=== PATIENT | female | born 1970 | race Caucasian/White ===

== ENCOUNTER 2021-05-18 10:25 | Emergency (ER) | payer BC, SELFPAY ==
[2021-05-18] VITALS (7 sets, daily range): BP systolic 126–151; BP diastolic 76–94; PULSE 69–87; RESP 15–18; TEMP 36.5–37; O2SAT 94–97; BMI 25.8
[2021-05-18 11:35] LABS: Add Urine Microscopic? YES; Bilirubin Urine Neg (Negative); Blood Urine 3+ (Negative); Glucose Urine UA Norm (Normal); Ketones Urine Negative (Negative); Leukocyte Esterase Urine 1+ (Negative); Nitrate Urine Negative (Negative); Protein Urine Neg (Negative); Specific Gravity, Urine 1.015 (1.005-1.030); Urine Appearance Clear (CLEAR); Urine Color Yellow (Yellow); Urobilinogen Urine Norm (Negative); pH Urine 6 (5-7)
--- NOTE | 2021-05-18 11:47 | CT_ITS ---
WS: [id number] CT ABDOMEN AND PELVIS WITH CONTRAST HISTORY: Right-sided flank pain TECHNIQUE: Imaging performed of the abdomen and pelvis with IV contrast. Single phase imaging of the abdomen. Coronal and sagittal reformats are submitted. All CT scans at [facility] use at least one of these dose optimization techniques: automated exposure control; mA and/or kV adjustment per patient size (includes targeted exams where dose is matched to clinical indication); or iterativ e reconstruction. IV CONTRAST: Omnipaque 300; 95 mL IV. Oral contrast: No DLP: 1591.07 mGy.cm COMPARISON: None available. Lower thorax: Lung bases are clear. Heart is normal size. No hiatal hernia. Liver/biliary system: Multiple small low-attenuation lesions within the liver are likely cysts. Fatty sparing along the falciform ligament. No bile duct dilatation. Gallbladder: Status post cholecystectomy. Pancreas: Normal size pancreas and pancreatic duct. No adjacent inflammation. Spleen: Normal size spleen. No mass or infarct. Adrenal glands: Bilateral low-attenuation adrenal masses. Hounsfield units are elevated. RIGHT adrena l mass measures 2.7 cm in maximum diameter and the LEFT 3.3 cm. Right kidney: Large amount of perinephric stranding. Moderate hydroureteronephrosis. Ureter is dilate d into the pelvis secondary to a 6 mm calcification in the distal ureter. This calcification extends over length of 7 mm and is slightly lobulated. This could be due two adjacent calcifications. Marked enlargement of the ureter with periureteral stranding. There are additional nonobstructing calcificat ions in the renal pelvis. RIGHT renal cyst measures 4.5 cm from the mid kidney. Left kidney: Numerous calyceal calcifications. No significant hydronephrosis. There is very slight di latation of the renal pelvis and ureter. Aorta: Normal. Lymphadenopathy: Small retroperitoneal lymph nodes. Lymph nodes are numerous and mildly hypervascular and may be a response of the RIGHT renal obstruction and possible pyelonephritis. Free fluid: Perinephric stranding and fluid along the RIGHT paracolic gutter. GI tract: The appendix is normal and contains air. There is a small appendicolith present. Central sm all bowel loops are dilated up to 3.7 cm Abdominal wall: Unremarkable abdominal wall. No hernia. Pelvis: No free fluid or adenopathy within the pelvis. Bones: Moderate degenerative disc disease at L5-S1. CT/CT abdomen pelvis w con* [id number] IMPRESSION: 1. Moderate to severe RIGHT hydroureteronephrosis with a large amount of perin ephric and periureteral stranding. Superimposed pyelonephritis should be consid ered taking into consideration the extent of the stranding. 2. RIGHT hydronephrosis secondary to a lobulated distal ureteral calcification extending over a length of 7 mm and transversely by 6 mm. This could potential ly be two adjacent calcifications. 3. Normal appendix but there is an appendicolith present. 4. Numerous additional calcifications within each kidney, greatest in the LEFT kidney probably due to medullary sponge kidney. 5. Prior cholecystectomy. 6. Bilateral low-attenuation adrenal masses. With no history of malignancy the se are statistically probably adenomas. To confirm this recommend follow-up ded icated adrenal mass protocol CT or MRI with contrast.
[2021-05-18 11:49] LABS: RBC Urine 50-80 /hpf (0-2); WBC Urine 0-4 /hpf (0-5)
[2021-05-18 11:50] LABS: Squamous Epithelial Cell Urine RARE /hpf (0-5)
[2021-05-18] MEDS: ondansetron 2 mg/ML SDV 2 mL 4 MG IVP (12:02)
[2021-05-18] MEDS: sodium chloride 0.9% 1,000 ML 999 ML IV (12:02)
[2021-05-18] MEDS: morphine 4 mg/mL SDV 1 mL IVP ×2 (12:03→13:42)
[2021-05-18 12:10] LABS: Basophils # 0.1 10^3/uL (0.0-0.1); Basophils % 0.4 %; Eosinophils # 0.1 10^3/uL (0.0-0.8); Eosinophils % 0.4 %; Hemoglobin 15.5 g/dL (11.5-15.3); Lymphocytes # 2.8 10^3/uL (0.8-4.8); Lymphocytes % 16.2 %; Mean Corpuscular Hemoglobin 30.5 pg (28.0-34.0); Mean Corpuscular Volume 92.5 fL (81-99); Mean Platelet Volume 10.7 fL (7.4-10.4); Monocytes # 1.3 10^3/uL (0.2-0.9); Monocytes % 7.7 %; Neutrophils # 12.92 10^3/uL (1.8-7.7); Nucleated Red Blood Cells % 0 %; Platelet Count 296 10^3/cmm (130-400); Red Blood Count 5.08 10^6/uL (4.1-5.3); Red Cell Distribution Width 12.9 % (12.1-15.1); White Blood Count 17.2 10^3/uL (4.0-10.0)
--- NOTE | 2021-05-18 12:17 | W.ED.ABDPA2 ---
HPI - Abdominal Pain General: Chief Complaint: Abdominal Pain Stated Complaint: flank and ab pain, N/V Time Seen by Provider: 05/18/21 11:33 History of Present Illness: HPI narrative: 51-year-old female presents emergency room complaint of right-sided flank pain radiating into the lower abdomen. Pain began suddenly last night with nausea and vomiting. She has no dysuria no hematuria she has a history of renal stones. She not had any fever sweats or chills. She has had some diarrhea with this. She has had previous episodes that were much less intense. MD elicited complaint: abdominal pain Pertinent past history: kidney stones Onset (ago): minute(s) Pain Consistency: intermittent Location: R flank Severity: moderate Quality: cramping Radiation: RUQ, epigastric and suprapubic Exacerbating factors: nothing Relieving factors: nothing Associated Symptoms: Reports GI cramping and diarrhea; Denies anorexia, belching, bloating, change in bowel habits, change in stool character, chills, coffee ground emesis, constipation, dyspepsia, dysuria, excessive flatus, fever(s), heartburn, hematochezia, hematuria, hematemesis, fecal incontinence, loose stools, melena, nausea, poor appetite, syncope and vomiting Review of Systems Const: Denies: fever(s) or chills ENMT: Denies: throat pain, ear or mastoid pain, nasal discharge or nasal congestion Card: Denies: syncope Resp: Denies: dyspnea, productive cough or non-productive cough GI: Reports: diarrhea and GI cramping; Denies: nausea, vomiting, hematemesis, coffee ground emesis, heartburn, constipation, bloating, belching, excessive flatus, fecal incontinence, change in bowel habits, change in stool character, hematochezia or melena : Denies: dysuria or hematuria Skin/Breast: Denies: rash or pruritus PFSH ED PFSH: Medical History (Updated 05/26/21 @ 00:00 by ) Hydronephrosis Right distal ureteral calculus S/P extracorporeal shock wave therapy Surgical History (Updated 05/19/21 @ 08:37 by Dejuan Gabriel MD) Hx of cholecystectomy S/P ureteral stent placement Family History (Updated 05/19/21 @ 07:52 by Gabrielle Arias LPN) Father Lung disease emphysema Mother , at age 62 Cancer Diabetes Social History (Updated 05/19/21 @ 07:53 by Gabrielle Arias LPN) Smoking and tobacco status: current every day smoker cigarettes Packs smoked per day: 0.5 Alcohol intake: current Alcohol intake frequency: holidays/special occasions only Marital status: Current occupational status: unemployed History of recent travel: No Physical Exam Const: COMMON NORMALS: no acute distress GENERAL APPEARANCE: cooperative and comfortable ORIENTATION/CONSCIOUSNESS: Yes awake, Yes oriented to person, Yes oriented to place and Yes oriented to time HENMT: COMMON NORMALS: normocephalic, atraumatic, hearing grossly normal bilaterally and external ears normal HEAD & SCALP: normocephalic and atraumatic EXTERNAL EAR: Yes external ears normal Neck/C-Spine: COMMON NORMALS: no JVD Resp: COMMON NORMALS: normal respiratory effort, No retractions, No use of accessory muscles and clear to auscultation bilaterally AUSCULTATION: clear to auscultation bilaterally Cardio: COMMON NORMALS: no JVD, regular rate, regular rhythm and No murmurs present (Cardio) RATE: regular rate RHYTHM: regular rhythm GI: COMMON NORMALS: Soft to palpation and No hepatosplenomegaly present AUSCULTATION: Yes normoactive bowel sounds PALPATION: Yes Soft to palpation, No Tenderness to palpation present (GI), No Guarding due to palpation present (GI) and Yes No hepatosplenomegaly present Extremity: COMMON NORMALS: normal to inspection, capillary refill normal, no clubbing, cyanosis or edema, no calf tenderness and no pedal edema Neuro: SENSORIUM/ORIENTATION: Yes oriented to person, Yes oriented to place and Yes oriented to time Skin: COMMON NORMALS: no rashes or lesions noted GENERAL SKIN EXAM: no rashes or lesions noted Course Vital Signs: Vital signs: Vital Signs Temperature 98.2 F 05/18/21 14:34 Pulse Rate 73 05/18/21 14:34 Respiratory Rate 18 05/18/21 14:34 Blood Pressure 126/87 05/18/21 14:34 Pulse Oximetry 94 05/18/21 14:34 MDM - Abdominal Pain MDM Narrative: Medical decision making narrative: Renal calculi. Discussed with patient will have her strain urine medications given follow-up with Dr. Gabriel to be scheduled in the morning. If he has any worsening problems her pain is uncontrollable return. Lab Data: Labs: Lab Results 05/18/21 05/18/21 05/18/21 Range/Units 11:10 11:53 11:53 WBC 17.2 H (4.0-10.0) 10^3/ uL RBC 5.08 (4.1-5.3) 10^6/u L Hgb 15.5 H (11.5-15.3) g/dL Hct 47.0 (37.0-47.0) % MCV 92.5 (81-99) fL MCH 30.5 (28.0-34.0) pg MCHC 33.0 (30.0-36.0) g/dL RDW 12.9 (12.1-15.1) % Plt Count 296 (130-400) 10^3/c mm MPV 10.7 H (7.4-10.4) fL Neut % (Auto) 75.0 % Lymph % (Auto) 16.2 % Knott % (Auto) 7.7 % Eos % (Auto) 0.4 % Baso % (Auto) 0.4 % Neut # (Auto) 12.92 H (1.8-7.7) 10^3/u L Lymph # (Auto) 2.8 (0.8-4.8) 10^3/u L Knott # (Auto) 1.3 H (0.2-0.9) 10^3/u L Eos # (Auto) 0.1 (0.0-0.8) 10^3/u L Baso # (Auto) 0.1 (0.0-0.1) 10^3/u L Nucleated RBC % (a uto) 0 % Nucleated RBCs # 0.0 /100WBC Sodium 134 L (136-145) mmol/L Potassium 4.3 (3.5-5.1) mmol/L Chloride 99 (98-107) mmol/L Carbon Dioxide 24 (22-29) mmol/L Anion Gap 15.3 (5-19) BUN 18 (6-20) mg/dL Creatinine 0.7 (0.5-0.9) mg/dL GFR Calculation 88.6 L (90-130) mL/min Glucose 112 (65-115) mg/dL Calculated Osmolal ity 281 L (285-295) mOsm/k g Calcium 9.0 (8.5-10.5) mg/dL Total Bilirubin 0.5 (0.15-1.2) mg/dL AST 18 (0-32) U/L ALT 18 (0-33) U/L Alkaline Phosphata se 120 H (35-105) IU/L Total Protein 6.9 (6.6-8.7) g/dL Albumin 4.2 (3.5-5.2) g/dL Globulin 2.7 (1.3-4.6) g/dL Lipase 13 (13-60) U/L Urine Color Yellow (Yellow) Urine Appearance Clear (CLEAR) Urine pH 6 (5-7) Ur Specific Gravit y 1.015 (1.005-1.030) Urine Protein Neg (Negative) Urine Glucose (UA) Norm (Normal) Urine Ketones Negative (Negative) Urine Blood 3+ H (Negative) Urine Nitrate Negative (Negative) Urine Bilirubin Neg (Negative) Urine Urobilinogen Norm (Negative) mg/dL Ur Leukocyte Yamileth ase 1+ H (Negative) Urine RBC 50-80 H (0-2) /hpf Urine WBC 0-4 H (0-5) /hpf Ur Squamous Epith Cells Rare (0-5) /hpf Amorphous Sediment Not Reportable Urine Bacteria None (NONE) /hpf Discharge Plan Discharge Patient Disposition: Home Clinical Impression: Calculus of kidney Condition: Stable Prescriptions: New hydrocodone-acetaminophen 5-325 mg tablet 1 tab PO Q6H PRN (Reason: pain) Qty: 25 RF: 0 ondansetron HCl [Zofran] 4 mg tablet 4 mg PO Q6H PRN (Reason: nausea and vomiting) Qty: 20 RF: 0 tamsulosin 0.4 mg capsule 0.4 mg PO DAILY Qty: 20 RF: 0 Discharge Orders: Discharge ED (Routine); Ordered 05/18/21 Ordered By: Joshua Morrison Discharge Diet: Usual diet Patient Instructions: Opioid Safety Activity Restrictions/Additional Instructions: Case management will contact you for follow-up with urology tomorrow morning. Coding Level of Care Code ED Beverage Steward for [facility] Fwd Exam Comprehensive
[2021-05-18] MEDS: iohexol 300 mg/mL 100 mL Btl IV (12:24)
[2021-05-18 12:26] LABS: Alanine Aminotransferase 18 U/L (0-33); Albumin Level 4.2 g/dL (3.5-5.2); Alkaline Phosphatase 120 IU/L (35-105); Anion Gap 15.3 (5-19); Aspartate Amino Transferase 18 U/L (0-32); Blood Urea Nitrogen 18 mg/dL (6-20); Carbon Dioxide 24 mmol/L (22-29); Chloride 99 mmol/L (98-107); Globulin 2.7 g/dL (1.3-4.6); Glomerular Filtration Rate 88.6 mL/min (90-130); Glucose 112 mg/dL (65-115); Lipase 13 U/L (13-60); Osmolality Calculated 281 mOsm/kg (285-295); Potassium 4.3 mmol/L (3.5-5.1); Sodium 134 mmol/L (136-145); Total Bilirubin 0.5 mg/dL (0.15-1.2); Total Protein 6.9 g/dL (6.6-8.7)
--- NOTE | 2021-05-18 12:54 | PC.NURSE ---
Patient Reports flank pain that radiates to abdomen. Reports history of kidney stones but has never had pain this severe. Rates pain as a 10 and describes as shooting.
[2021-05-18] MEDS: cefTRIAXone 2,000 MG in sodium chloride 0.9% (plus) 50 ML 100 MG IV (13:43)
--- NOTE | 2021-05-18 13:49 | DCPLANNER ---
Received message to schedule patient with urology in the AM. Called Dr. Gabriel's office and spoke to Joycelyn, who states they have patient scheduled tomorrow @ 0730. Patient has been notified of this appointment.
--- NOTE | 2021-05-25 07:20 | DCPLANNER ---
Patient had a follow up appointment scheduled for 05.19.[address] Gabriel - patient did attend appointment.
--- NOTE | 2021-05-26 07:19 | DCPLANNER ---
Patient had a follow up appointment scheduled for 05.19.[address] Gabriel - patient did attend appointment.
--- NOTE | 2021-06-02 15:29 | DCPLANNER ---
Patient had a followup appointment scheduled for 05.19.[address] Gabriel - patient did attend appointment.
== END 2021-05-18 14:34 | disposition home or self-care (01) ==
PROVIDERS: Physician Assistant; Emergency Provider Family Medicine
DX: N20.0 Calculus of kidney (principal); Z87.442 Personal history of urinary calculi; F17.210 Nicotine dependence, cigarettes, uncomplicated
CPT/HCPCS: 74177; 80053; 81001; 83690; 85025; 96361; 96365; 96375; 96376; 99285; J0696; J2270; J2405; J7030; Q9967

== ENCOUNTER 2021-05-19 07:12 | Outpatient (CLI) | payer BC, SELFPAY ==
--- NOTE | 2021-05-19 07:00 | XR_ITS ---
WS: [id number] KUB, AP view, 05/19/2021 Clinical Data: ureteral calculus Comparison: CT abdomen and pelvis, 05/18/2021 Findings: No abnormal intraabdominal masses are seen. There is no dilatated small bowel or evidence of obstruct ion. There are calcifications overlying both kidneys, more on the left than the right. The distal right ur eteral calculus is not distinctly seen but may be present. There are phleboliths in the left side of the true pelvis. There is a large amount of fecal material throughout the colon. There are clips in t he right upper quadrant from a cholecystectomy. XR/XR KUB [id number] Impression: 1. Bilateral renal calcifications. 2. Possible distal right ureteral calculus.
== END 2021-05-19 07:13 | disposition home or self-care (01) ==
LOC: RAD 07:15
PROVIDERS: Visit Provider Urology
DX: N20.0 Calculus of kidney (principal); N20.1 Calculus of ureter; Z20.822 Contact with and (suspected) exposure to COVID-19
CPT/HCPCS: 74018; 81003; 87635

== ENCOUNTER 2022-01-17 07:01 | Outpatient (CLI) | payer BC, SELFPAY ==
--- NOTE | 2022-01-17 07:00 | XRR_ITS ---
PROCEDURE INFORMATION: Exam: XR Abdomen Exam date and time: 01/17/2022 7:00 AM Age: 51 years old Clinical indication: Condition or disease; Kidney or ureter condition; Calculus (stone) in ureter; Prior surgery; Surgery type: Kidney stone, gb; Additional info: Right distal ureteral calculus, kub @ ozh on 01/17/22 @ 7. Appt to follow TECHNIQUE: Imaging protocol: XR of the abdomen. Views: Frontal supine view of the abdomen. 1 View. COMPARISON: CR XR KUB [id number] 05/19/2021 7:[address] dated 05/18/2021. FINDINGS: Gastrointestinal tract: Nonobstructive bowel gas pattern. Intraperitoneal space: There is a 0.9 cm calcific density at the expected location of the right distal ureter, which may correspond to obstructing stone seen on previous abdomen CT. Calcific densities are again seen projecting over the kidney shadows, corresponding to known nonobstructive kidney stones. Some of the previously seen kidney stones are obscured by overlying bowel content. Cholecystectomy clips project over the right upper quadrant. Pelvic phleboliths seen. Bones/joints: Unremarkable. XR/XR KUB [id number] IMPRESSION: 1. Calcific density at the expected location of the right distal ureter, which may correspond to previously identified obstructing kidney stones. 2. Bilateral nonobstructive kidney stones.
--- NOTE | 2022-01-17 10:14 | CT_ITS ---
WS: [id number] CT ABDOMEN AND PELVIS NONCONTRAST HISTORY: Bilateral flank pain for 3 weeks. TECHNIQUE: Imaging performed through the abdomen and pelvis. Coronal and sagittal reformats are submi tted. All CT scans at [facility] use at least one of these dose optimization techniques: auto mated exposure control; mA and/or kV adjustment per patient size (includes targeted exams where dose is matched to clinical indication); or iterative reconstruction. DLP: 1095.77 mGy-cm. COMPARISON: 05/18/2021 Lower thorax: Lung bases are clear. Visualized heart is normal. No hiatal hernia. Liver: Normal size liver. 12 mm cyst in the inferior posterior RIGHT lobe of the liver. There is an a dditional smaller 5 mm cyst at the most inferior tip of the liver. Gallbladder: Prior cholecystectomy. Pancreas: Normal size and attenuation. Normal pancreatic duct. No pancreatitis or mass. Spleen: Normal. Adrenal glands: Bilateral low-attenuation adrenal masses. RIGHT adrenal mass measures 2.3 x 2.0 cm. L EFT adrenal mass is lobulated measuring 2.8 x 4.2 cm. Hounsfield units are negative and these masses are stable since 05/18/2022. Right kidney: Previously described hydronephrosis has resolved. There is a 7 x 5 mm stone in the dist al RIGHT ureter which was present on the prior examination also. This may be a new calcification of s imilar dimension. There are additional numerous calcifications within the renal pelvis. No change in the RIGHT renal cyst measuring 3.7 x 4.8 cm. Left kidney: Normal size kidney with extensive calcifications within the calyces of the kidney. No ur eteral calcification or obstruction identified. Aorta: Mild atherosclerosis aorta. There are small shoddy retroperitoneal and mesenteric lymph nodes. Not increasing in size. GI tract: Appendix is visualized and appears normal. No adjacent inflammation. Extensive diverticulos is throughout the colon. Abdominal wall: Negative. No hernia. Pelvis: No free fluid or adenopathy within the pelvis. Uterus and ovaries are normal by CT. Osseous structures: Unremarkable. CT/CT kidney stone [id number] IMPRESSION: 1. Extensive bilateral nephrolithiasis. 2. Previously described RIGHT hydronephrosis has resolved but there is a stone in the distal RIGHT ureter measuring 7 x 5 mm. 3. Bilateral adrenal adenomas. 4. Extensive diverticulosis without acute diverticulitis.
== END 2022-01-17 07:02 | disposition home or self-care (01) ==
PROVIDERS: PCP Nurse Practitioner; Visit Provider Urology
DX: R10.9 Unspecified abdominal pain (principal); N20.1 Calculus of ureter; N20.0 Calculus of kidney; D35.02 Benign neoplasm of left adrenal gland; D35.01 Benign neoplasm of right adrenal gland; K57.90 Diverticulosis of intestine, part unspecified, without perforation or abscess without bleeding
CPT/HCPCS: 74018; 74176; 81003

== ENCOUNTER 2022-01-21 11:34 | Outpatient (CLI) | payer BC, SELFPAY ==
--- NOTE | 2022-01-21 11:00 | XR_ITS ---
WS: [id number] KUB, AP view, 01/21/2022 Clinical Data: STONES Comparison: KUB, 01/17/2022 Findings: No abnormal intraabdominal masses are seen. There is no dilatated small bowel or evidence of obstruct ion. There are numerous calcifications overlying the left kidney. Calcifications may overlie the right kid elida but the overlying fecal material and gas obscure detail. There is a 0.9 cm calcification inferior to the right SI joint which may represent a distal right ureteral calculus. There are phleboliths in the true pelvis. XR/XR KUB [id number] Impression: 1. Bilateral renal calculi unchanged. 2. Possible distal right ureteral calculus unchanged.
== END 2022-01-21 11:35 | disposition home or self-care (01) ==
LOC: RAD 11:45
PROVIDERS: PCP Nurse Practitioner; Visit Provider Urology
DX: N20.0 Calculus of kidney (principal)
CPT/HCPCS: 74018; 81003

== ENCOUNTER 2022-02-08 07:07 | Outpatient (CLI) | payer BC, SELFPAY ==
--- NOTE | 2022-02-08 07:22 | XR_ITS ---
WS: [id number] KUB, AP view, 02/08/2022 Clinical Data: BILATERAL RENAL STONES Comparison: KUB, 01/21/2022. Findings: No abnormal intraabdominal masses are seen. There is no dilatated small bowel or evidence of obstruct ion. There are bilateral renal calcifications, more on the left than the right. Again there is a calcifica tion inferior to the right SI joint which may represent a phlebolith or a distal right ureteral calcu fiorella. There are phleboliths in the true pelvis. There are clips in the right upper quadrant from a cho lecystectomy. XR/XR KUB [id number] Impression: 1. Bilateral renal calcifications. 2. Possible distal right ureteral calculus unchanged.
== END 2022-02-08 07:08 | disposition home or self-care (01) ==
PROVIDERS: PCP Nurse Practitioner; Visit Provider Urology
DX: N20.0 Calculus of kidney (principal); N30.00 Acute cystitis without hematuria
CPT/HCPCS: 74018; 81003

== ENCOUNTER 2022-02-22 10:01 | Outpatient (CLI) | payer BC, SELFPAY ==
--- NOTE | 2022-02-22 10:14 | XR_ITS ---
WS: [id number] XR KUB [id number] REASON FOR EXAM: Bilateral Renal Stones FINDINGS: Several sub-2 mm calculi seen overlying the right kidney. Multiple clusters of calculi overlying the left kidney with the largest calculus measuring 8.8 mm in maximum diameter. No significant interval c hange compared to 02/08/2022. No ureteral calculi. No bladder calculi. XR/XR KUB [id number] IMPRESSION: Multiple renal calculi as above.
== END 2022-02-22 10:02 | disposition home or self-care (01) ==
PROVIDERS: PCP Nurse Practitioner; Visit Provider Urology
DX: N20.0 Calculus of kidney (principal); N13.30 Unspecified hydronephrosis
CPT/HCPCS: 74018; 81003

== ENCOUNTER 2022-07-11 17:22 | Emergency (ER) | payer BC, MEDICAID, SELFPAY ==
[2022-07-11 17:31] VITALS: BP 123/65; PULSE 118; RESP 16; TEMP 37.9; O2SAT 94; BMI 28.1
--- NOTE | 2022-07-11 18:27 | CTR_ITS ---
PROCEDURE INFORMATION: Exam: CT Abdomen And Pelvis Without Contrast Exam date and time: 07/11/2022 6:33 PM Age: 52 years old Clinical indication: Pain; Other: Flank right; Prior surgery; Surgery date: 6+ months; Surgery type: Taryn, S/P ureteral stent in the past; Additional info: Flank pain TECHNIQUE: Imaging protocol: Computed tomography of the abdomen and pelvis without contrast. Radiation optimization: All CT scans at this facility use at least one of these dose optimization techniques: automated exposure control; mA and/or kV adjustment per patient size (includes targeted exams where dose is matched to clinical indication); or iterative reconstruction. COMPARISON: CT abdomen pelvis w con* [id number] 05/18/2021 12:18 PM RADIATION DOSE METRICS: Total DLP (mGy-cm): 696 FINDINGS: Liver: Normal. No mass. Gallbladder and bile ducts: Cholecystectomy. No ductal dilation. Pancreas: Normal. No ductal dilation. Spleen: Normal. No splenomegaly. Adrenal glands: Bilateral lower attenuation ovoid adrenal lesions measuring up to 3.4 cm on the left and 2.9 cm on the right either reflecting adrenal cysts or lipid rich adenomas. Kidneys and ureters: Obstructing 6 mm stone noted in the distal right ureter just proximal to the UVJ. There is corresponding moderate upstream hydroureteronephrosis. Multiple punctate nonobstructing stones noted throughout the left kidney with a few additional punctate nonobstructing stones also noted in the right kidney. Dominant 4.8 cm cyst noted in the anterior cortex of the right kidney. Stomach and bowel: Colonic diverticulosis. No obstruction. No mucosal thickening. Appendix: No evidence of appendicitis. Intraperitoneal space: Unremarkable. No free air. No significant fluid collection. Vasculature: Unremarkable. No abdominal aortic aneurysm. Lymph nodes: Unremarkable. No enlarged lymph nodes. Urinary bladder: Unremarkable as visualized. Reproductive: Unremarkable as visualized. Bones/joints: No acute fracture. Degenerative disc disease at L5-S1. Soft tissues: Unremarkable. CT/CT abdomen pelvis wo con [id number] IMPRESSION: Obstructing 6 mm stone in the distal right ureter just proximal to the UVJ with moderate upstream hydroureteronephrosis. Multiple punctate nonobstructing stones noted within both kidneys, left greater than right. COMMENTS: 1. Consistent with the [employer]'s Incidental Findings Committee white paper (J Am Hattie Radiol 2018): Any incidental renal lesion less than 1 cm or classified as too small to characterize, or any incidental cystic renal lesion characterized as simple-appearing, is likely benign. No follow-up imaging is recommended for these lesions per consensus recommendations based on imaging criteria. 2. Consistent with the [employer]'s Incidental Findings Committee white paper (J Am Hattie Radiol 2017): For any incidental adrenal lesion greater than or equal to 1 cm but less than or equal to 4 cm classified in this report as benign, likely benign, or containing fat (including classification as an adenoma or myelolipoma), no follow-up imaging is recommended per consensus recommendations based on imaging criteria. Further lab evaluation could be pursued if warranted based on clinical findings.
--- NOTE | 2022-07-11 19:06 | ED_ITS ---
HPI - Back Pain/Injury General: Chief Complaint: Back Pain/Injury Stated Complaint: Abd pain and back pain Time Seen by Provider: 07/11/22 18:09 Source: patient Mode of arrival: ambulatory Limitations: no limitations History of Present Illness: 52-year-old female states she has been having right flank pain since this morning states pain has been sharp in nature she has had kidney stones this feels similar states she is concerned she had a temperature of 102 at home she did not take any antipyretics and it is 100.3 here. She denies any dysuria denies any vomiting denies any cough denies any body aches. Associated symptoms: Reports fever(s); Deny abdominal pain, nausea or vomiting Review of Systems Const: Reports: fever(s) Eyes: Denies: blurry vision or eye discomfort ENMT: Denies: throat pain or dental pain Card: Denies: chest pain Resp: Denies: dyspnea GI: Denies: abdominal pain, nausea, vomiting or diarrhea : Reports: flank pain Musc: Denies: neck pain or back pain Skin/Breast: Denies: rash Neuro: Denies: headache(s) Psych: Denies: depression Branden/Lymph: Denies: easy bruising All/Imm: Denies: urticaria PFSH ED PFSH: Medical History Bilateral renal stones Hydronephrosis Right distal ureteral calculus S/P extracorporeal shock wave therapy Surgical History Hx of cholecystectomy S/P ureteral stent placement Family History Father Lung disease emphysema Mother , at age 62 Cancer Diabetes Social History Smoking and tobacco status: current every day smoker cigarettes Packs smoked per day: 0.5 Alcohol intake: current Alcohol intake frequency: holidays/special occasions only Marital status: Current occupational status: unemployed History of recent travel: No Physical Exam Const: COMMON NORMALS: no acute distress, patient oriented x3 and healthy appearing HENMT: COMMON NORMALS: normocephalic and atraumatic HEAD & SCALP: normocephalic and atraumatic Eye: COMMON NORMALS: Equal, round and reactive pupils present and EOMs intact bilaterally PUPIL: Yes Equal, round and reactive pupils present Neck/C-Spine: COMMON NORMALS: full ROM and supple Chest: COMMONS NORMALS: normal inspection of the chest and normal palpation of entire chest wall Resp: COMMON NORMALS: normal respiratory effort, No retractions, No use of accessory muscles and clear to auscultation bilaterally AUSCULTATION: clear to auscultation bilaterally Cardio: COMMON NORMALS: regular rate, regular rhythm and No murmurs present (Cardio) RATE: regular rate RHYTHM: regular rhythm GI: COMMON NORMALS: Normal to inspection, nondistended, normoactive bowel sounds present, Soft to palpation, non-tender and no masses PALPATION: Yes Soft to palpation : COMMON NORMALS: Yes no CVA tenderness BLADDER/KIDNEY EXAM: Yes no CVA tenderness Back/Pelvis: COMMON NORMALS: no CVA tenderness Extremity: COMMON NORMALS: normal to inspection and full ROM Neuro: COMMON NORMALS: patient oriented x3, moves all extremities and no focal motor deficits Psych: COMMON NORMALS: mental status grossly normal, Normal thought process present and cooperative THOUGHT PROCESS: Normal thought process present Skin: COMMON NORMALS: no rashes or lesions noted and no wounds GENERAL SKIN EXAM: no rashes or lesions noted Course Vital Signs: Vital signs: Vital Signs Temperature 100.6 F H 07/11/22 19:26 Pulse Rate 106 H 07/11/22 19:26 Respiratory Rate 18 07/11/22 19:26 Blood Pressure 135/79 07/11/22 19:26 Pulse Oximetry 93 07/11/22 19:26 Oxygen Delivery Me thod 07/11/22 19:26 MDM - Back Pain/Injury Medical Decision Making Patient presents here with flank pain she does have a kidney stone she had a low-grade fever here her white count is normal she has no signs of urinary tract infection. Her CT was otherwise normal signs of kidney stone we will get her on pain meds her pain is resolved here we will follow her up with urology and return if worsening she understands agrees to plan. Labs : 07/11/22 19:00 07/11/22 19:00 Radiology Impressions Abdomen/Pelvis CT 07/11/22 18:27 IMPRESSION: Obstructing 6 mm stone in the distal right ureter just proximal to the UVJ with moderate upstream hydroureteronephrosis. Multiple punctate nonobstructing stones noted within both kidneys, left greater than right. COMMENTS: 1. Consistent with the [employer]'s Incidental Findings Committee white paper (J Am Hattie Radiol 2018): Any incidental renal lesion less than 1 cm or classified as too small to characterize, or any incidental cystic renal lesion characterized as simple-appearing, is likely benign. No follow-up imaging is recommended for these lesions per consensus recommendations based on imaging criteria. 2. Consistent with the [employer]'s Incidental Findings Committee white paper (J Am Hattie Radiol 2017): For any incidental adrenal lesion greater than or equal to 1 cm but less than or equal to 4 cm classified in this report as benign, likely benign, or containing fat (including classification as an adenoma or myelolipoma), no follow-up imaging is recommended per consensus recommendations based on imaging criteria. Further lab evaluation could be pursued if warranted based on clinical findings. Laboratory Results WBC 8.2 10^3/uL (4.0-10.0) 07/11/22 19:00 RBC 4.33 10^6/uL (4.1-5.3) 07/11/22 19:00 Hgb 13.6 g/dL (11.5-15.3) 07/11/22 19:00 Hct 40.9 % (37.0-47.0) 07/11/22 19:00 MCV 94.5 fl (81-99) 07/11/22 19:00 MCH 31.4 pg (28.0-34.0) 07/11/22 19:00 MCHC 33.3 g/dL (30.0-36.0) 07/11/22 19:00 RDW 12.8 % (12.1-15.1) 07/11/22 19:00 Plt Count 205 10^3/cmm (130-400) 07/11/22 19:00 MPV 10.1 fL (7.4-10.4) 07/11/22 19:00 Neut % (Auto) 75.8 % 07/11/22 19:00 Lymph % (Auto) 9.1 % 07/11/22 19:00 [place] % (Auto) 13.4 % 07/11/22 19:00 Eos % (Auto) 0.4 % 07/11/22 19:00 Baso % (Auto) 0.6 % 07/11/22 19:00 Neut # (Auto) 6.18 10^3/uL (1.8-7.7) 07/11/22 19:00 Lymph # (Auto) 0.7 10^3/uL (0.8-4.8) L 07/11/22 19:00 [place] # (Auto) 1.1 10^3/uL (0.2-0.9) H 07/11/22 19:00 Eos # (Auto) 0.0 10^3/uL (0.0-0.8) 07/11/22 19:00 Baso # (Auto) 0.1 10^3/uL (0.0-0.1) 07/11/22 19:00 Nucleated RBC % (auto) 0 % 07/11/22 19:00 Nucleated RBCs # 0.0 /100WBC 07/11/22 19:00 Sodium 130 mmol/L (136-145) L 07/11/22 19:00 Potassium 4.1 mmol/L (3.5-5.1) 07/11/22 19:00 Chloride 94 mmol/L (98-107) L 07/11/22 19:00 Carbon Dioxide 24 mmol/L (22-29) 07/11/22 19:00 Anion Gap 16.1 (5-19) 07/11/22 19:00 BUN 14 mg/dL (6-20) 07/11/22 19:00 Creatinine 0.7 mg/dL (0.5-0.9) 07/11/22 19:00 GFR Calculation 88.2 mL/min (90-130) L 07/11/22 19:00 Glucose 80 mg/dL (65-115) 07/11/22 19:00 Calculated Osmolality 269 mOsm/kg (285-295) L 07/11/22 19:00 Calcium 8.7 mg/dL (8.5-10.5) 07/11/22 19:00 Total Bilirubin 0.2 mg/dL (0.15-1.2) 07/11/22 19:00 AST 25 U/L (0-32) 07/11/22 19:00 ALT 31 U/L (0-33) 07/11/22 19:00 Alkaline Phosphatase 97 U/L (35-105) 07/11/22 19:00 Total Protein 7.0 g/dL (6.6-8.7) 07/11/22 19:00 Albumin 4.4 g/dL (3.5-5.2) 07/11/22 19:00 Globulin 2.6 g/dL (1.3-4.6) 07/11/22 19:00 Lipase 27 U/L (13-60) 07/11/22 19:00 Urine Color Yellow (Yellow) 07/11/22 18:44 Urine Appearance Clear (CLEAR) 07/11/22 18:44 Urine pH 6 (5-7) 07/11/22 18:44 Ur Specific [place] 1.015 (1.005-1.030) 07/11/22 18:44 Urine Protein Neg (Negative) 07/11/22 18:44 Urine Glucose (UA) Norm (Normal) 07/11/22 18:44 Urine Ketones Negative (Negative) 07/11/22 18:44 Urine Blood 2+ (Negative) H 07/11/22 18:44 Urine Nitrate Negative (Negative) 07/11/22 18:44 Urine Bilirubin Neg (Negative) 07/11/22 18:44 Urine Urobilinogen Norm mg/dL (Negative) 07/11/22 18:44 Ur Leukocyte Esterase Negative (Negative) 07/11/22 18:44 Urine RBC 5-10 /hpf (0-2) H 07/11/22 18:44 Urine WBC 0-4 /hpf (0-5) H 07/11/22 18:44 Ur Squamous Epith Cells 0-4 /hpf (0-5) H 07/11/22 18:44 Amorphous Sediment Not Reportable 07/11/22 18:44 Urine Bacteria None /hpf (NONE) 07/11/22 18:44 Hyaline Casts 0-4 /lpf H 07/11/22 18:44 Discharge Plan Discharge Patient Disposition: Home Clinical Impression: Kidney stones Condition: Stable Prescriptions: New hydrocodone-acetaminophen 5-325 mg tablet 1 tab PO Q6H PRN (Reason: pain) Qty: 14 0RF ondansetron 4 mg tablet,disintegrating 4 mg PO Q6H PRN (Reason: nausea and vomiting) Qty: 14 0RF No Action acetaminophen [Tylenol Extra Strength] 500 mg tablet 500 mg PO Q6H PRN (Reason: Pain) Discharge Orders: Discharge ED (Routine); Ordered 07/11/22 Ordered By: Adams Delacruz Referrals: Dejuan Gabriel MD [Physician] - 1-3 days Discharge Diet: Advance as tolerated Discharge Activity: Resume usual activity Patient Instructions: Kidney Stones (ED), Opioid Safety Coding Level of Care Code ED Cylinder Grinder for Chg Fwd Exam Comprehensive
[2022-07-11 19:11] LABS: Basophils # 0.1 10^3/uL (0.0-0.1); Basophils % 0.6 %; Eosinophils % 0.4 %; Hematocrit 40.9 % (37.0-47.0); Hemoglobin 13.6 g/dL (11.5-15.3); Lymphocytes # 0.7 10^3/uL (0.8-4.8); Lymphocytes % 9.1 %; Mean Corpuscular HGB Conc 33.3 g/dL (30.0-36.0); Mean Corpuscular Hemoglobin 31.4 pg (28.0-34.0); Mean Corpuscular Volume 94.5 fl (81-99); Mean Platelet Volume 10.1 fL (7.4-10.4); Monocytes # 1.1 10^3/uL (0.2-0.9); Monocytes % 13.4 %; Neutrophils # 6.18 10^3/uL (1.8-7.7); Neutrophils % 75.8 %; Nucleated Red Blood Cells % 0 %; Platelet Count 205 10^3/cmm (130-400); Red Blood Count 4.33 10^6/uL (4.1-5.3); Red Cell Distribution Width 12.8 % (12.1-15.1); White Blood Count 8.2 10^3/uL (4.0-10.0)
[2022-07-11] MEDS: ondansetron 2 mg/ML SDV 2 mL 4 MG IVP (19:20)
[2022-07-11] MEDS: acetaminophen 325 mg Tablet 650 MG PO (19:20)
[2022-07-11] MEDS: sodium chloride 0.9% 1,000 ML 999 ML IV (19:21)
[2022-07-11 19:22] VITALS: RESP 18
[2022-07-11] MEDS: morphine 4 mg/mL SDV 1 mL IVP (19:22)
[2022-07-11 19:26] VITALS: BP 135/79; PULSE 106; RESP 18; TEMP 38.1; O2SAT 93
[2022-07-11 19:36] LABS: Alanine Aminotransferase 31 U/L (0-33); Albumin Level 4.4 g/dL (3.5-5.2); Alkaline Phosphatase 97 U/L (35-105); Blood Urea Nitrogen 14 mg/dL (6-20); Calcium 8.7 mg/dL (8.5-10.5); Carbon Dioxide 24 mmol/L (22-29); Chloride 94 mmol/L (98-107); Globulin 2.6 g/dL (1.3-4.6); Glomerular Filtration Rate 88.2 mL/min (90-130); Glucose 80 mg/dL (65-115); Lipase 27 U/L (13-60); Osmolality Calculated 269 mOsm/kg (285-295); Sodium 130 mmol/L (136-145); Total Bilirubin 0.2 mg/dL (0.15-1.2)
[2022-07-11 19:43] LABS: Add Urine Microscopic? YES; Bilirubin Urine Neg (Negative); Blood Urine 2+ (Negative); Glucose Urine UA Norm (Normal); Ketones Urine Negative (Negative); Leukocyte Esterase Urine Negative (Negative); Nitrate Urine Negative (Negative); Protein Urine Neg (Negative); Specific Gravity, Urine 1.015 (1.005-1.030); Squamous Epithelial Cell Urine 0-4 /hpf (0-5); Urine Appearance Clear (CLEAR); Urine Color Yellow (Yellow); Urobilinogen Urine Norm (Negative); WBC Urine 0-4 /hpf (0-5); pH Urine 6 (5-7)
[2022-07-11 19:43] LABS: Anion Gap 16.1 (5-19); Aspartate Amino Transferase 25 U/L (0-32); Potassium 4.1 mmol/L (3.5-5.1)
[2022-07-11 19:44] LABS: Add Urine Culture? No; Hyaline Casts Urine 0-4 /lpf
[2022-07-11 20:13] VITALS: BP 118/74; PULSE 101; RESP 18; O2SAT 90
--- NOTE | 2022-07-12 11:38 | DCPLANNER ---
Addendum entered by Desiree Batres 07/28/22 18:58: Patient had a follow up appointment scheduled for 07.14.22 with urology - patient did attend appointment. Original Note: telehealth case manager had message to schedule a follow up appointment for patient with urology. telehealth case manager sent patients information will be printed and reviewed. Clinic will call patient with appointment information.
== END 2022-07-11 20:08 | disposition home or self-care (01) ==
PROVIDERS: Emergency Provider Emergency Medicine
DX: N20.0 Calculus of kidney (principal); Z87.442 Personal history of urinary calculi; F17.210 Nicotine dependence, cigarettes, uncomplicated
CPT/HCPCS: 74176; 80053; 81001; 83690; 85025; 96374; 96375; 99285; J2270; J2405; J7030

== ENCOUNTER 2022-07-14 14:15 | Outpatient (CLI) | payer BC, SELFPAY ==
--- NOTE | 2022-07-14 14:00 | XR_ITS ---
WS: [id number] KUB, AP view, 07/14/2022 Clinical Data: STONES Comparison: KUB, 02/22/2022. Findings: There are bilateral renal calculi, more on the left than the right. Phleboliths are in the true pelvi s. There is fecal material throughout the colon which does obscure detail over the kidneys. There are cl ips in the right upper quadrant from a cholecystectomy. XR/XR KUB [id number] Impression: Multiple bilateral renal calculi.
== END 2022-07-14 14:16 | disposition home or self-care (01) ==
LOC: RAD 14:17
PROVIDERS: Visit Provider Urology
DX: N20.1 Calculus of ureter (principal); N20.0 Calculus of kidney
CPT/HCPCS: 74018; 81003

== ENCOUNTER 2022-07-20 08:52 | Day surgery (SDC) | payer BC, MEDICAID, SELFPAY ==
[2022-07-20] VITALS (7 sets, daily range): BP systolic 97–126; BP diastolic 73–91; PULSE 80–90; RESP 10–24; TEMP 36.1–36.8; O2SAT 94–98
--- NOTE | 2022-07-20 | SCC_ITS ---
Procedure done: 1. Cystoscopy, RIGHT retrograde ureteropyelogram 2. RIGHT: Ureteroscopy, laser, stent 40.4 seconds of fluoroscopic guidance, for a cumulative dose of 9.83 mGy, was provided to Dr. Gabriel by the radiology department. C-arm images of the abdomen were saved for the patient's permanent record. [facility]
--- NOTE | 2022-07-20 09:17 | XR_ITS ---
WS: [id number] Exam: XR KUB [id number] Date/Time of Exam: 07/20/2022 9:28 AM Reason For Exam: Right ureteral stone Comparison 07/14/2022 Multiple calcifications superimpose the kidneys most marked on the left. This apparently represents k nown bilateral renal stones. No bowel obstruction or free air. Multiple bilateral nonspecific pelvic calcifications. Signs of prior cholecystectomy. No sign of organ enlargement. Bony structures are int act. XR/XR KUB [id number] IMPRESSION: 1. Multiple bilateral renal stones. 2. No acute abdominal process. Additional nonemergent findings as above.
--- NOTE | 2022-07-20 09:17 | SC_ITS ---
WS: [id number] Exam: C-arm FL for Urology Date/Time of Exam: 07/20/2022 9:17 AM Reason For Exam: Right ureteral stone 2 intraoperative C-arm images of the right abdomen and pelvis are submitted for evaluation. A limited right retrograde pyelogram shows a prominent filling defect in the distal right ureter that apparently represents a ureteral stone. The second C-arm image taken somewhat later depicts a stent catheter looped in the expected region of the right kidney. The lower end of the catheter is out of the [id number]. No other significant finding on this limited study.
[2022-07-20] MEDS: sodium chloride 0.9% 1,000 ML 30 ML IV (09:56)
--- NOTE | 2022-07-20 10:10 | ANES.PREANE2 ---
Pre-Anesthetic Assessment Height/Weight: Height 1.7 m Weight 81.647 kg Temp Pulse Resp BP Pulse Ox O2 Del Method 97 F L 86 16 97/73 96 07/20/22 09:44 07/20/22 09:44 07/20/22 09:44 07/20/22 09:44 07/20/22 09:44 07/20/22 09:44 Preop Diagnosis: Refractory right distal ureteral stone Operation Date: 07/20/22 10:50 Proposed Procedures p cystoscopy right retrograde ureteroscopy laser stent [id number] modifier [id number](Not Applicable) - Dejuan Gabriel MD s Retrograde Pyelogram(Right) - Dejuan Gabriel MD s Ureteroscopy(Right) - Dejuan Gabriel MD s Laser Lithotripsy(Right) - Dejuan Gabriel MD s Ureteral Stent Placement(Right) - Dejuan Gabriel MD Familial anesthetic complications: none Was Beta Paul taken within 24 hours: N/A Was Clonidine taken within 24 hours: N/A Last intake: Intake Last Liquid Date 07/20/22 Last Liquid Time 03:00 Last Solid Date 07/19/22 Last Solid Time 22:00 Social Tobacco and No alcohol Exam alert, oriented x 3, clear to auscultation bilaterally and regular rate & rhythm Airway Mallampati: Class II Dentition: full Comments: Comments: periodontal disease Pulmonary None reported CV/HEM None reported None reported Hepatic None reported GI None reported Metabolic None reported Musc/skel None reported Neuropsych None reported Anesthetic Plan ASA status: 2 Anesthesia: General Risk of > 500 ml blood loss (7ml/kg in children): No Medications/Allergies Home Medications Medication Instructions Recorded Confirmed Last Taken Type No Known Home Medications 07/19/22 07/19/22 Unknown History Allergies Allergy/AdvReac Type Severity Reaction Status Date / Time No Known Allergies Allergy Verified 07/14/22 15:19 Current Medications Generic Name Dose Route Start Last Admin Trade Name Freq PRN Reason Stop Dose Admin Sodium Chloride 1,000 mls @ 30 mls/hr 07/20/22 09:30 07/20/22 09:56 Sodium Chloride 0.9% IV 07/21/22 09:29 30 mls/hr .Q24H ANNEL Administration PFSH Anesthesia Medical History Bilateral renal stones Hydronephrosis Right distal ureteral calculus S/P extracorporeal shock wave therapy Surgical History Hx of cholecystectomy S/P ureteral stent placement Family History Father Lung disease emphysema Mother , at age 62 Cancer Diabetes Social History Smoking and tobacco status: current every day smoker cigarettes Packs smoked per day: 0.5 Alcohol intake: current Alcohol intake frequency: holidays/special occasions only Marital status: Current occupational status: retired History of recent travel: No Data Anesthesia Cardiac Studies: No Data to Display
--- NOTE | 2022-07-20 12:06 | W.PM.OPSUD ---
Surgery/Procedure H&P Update DATE OF PROCEDURE: July 20, 2022 DATE H&P PERFORMED: 07/14/22 H&P UPDATE INFORMATION: I have reviewed H&P completed within last 30 days, I have examined patient prior to procedure, No changes to prior documentation and H&P is in [facility] EMR on date indicated CHANGES TO PREVIOUS DOCUMENTATION: I have reviewed again her images including CT scan and KUBs there is no change on today's KUB regarding the position of the stone. It was interpreted as only renal stones but the previously identified stone on CT scan and KUB is clearly visualized in roughly the same location. Reviewed again the importance of safe access. The primary goal being being able to drain the kidney and if there is a accommodating ureter and access is able to be obtained safely then proceed with laser lithotripsy etc. Because her stone has been present for a long time I am suspicious that she may have a lot of edema which may make single-stage successful treatment less likely. She expressed good understanding. We talked about this with her and her in the clinic. PREOP DIAGNOSIS: Refractory right distal ureteral stone PLANNED PROCEDURE: Operation Date: 07/20/22 10:50 Proposed Procedures p cystoscopy right retrograde ureteroscopy laser stent [id number] [facility] [id number](Not Applicable) - Dejuan Gabriel MD s Retrograde Pyelogram(Right) - Dejuan Gabriel MD s Ureteroscopy(Right) - Dejuan Gabriel MD s Laser Lithotripsy(Right) - MD ken Rosas Ureteral Stent Placement(Right) - Dejuan Gabriel MD
[2022-07-20] MEDS: levofloxacin-dextrose 5 % 500 MG/100 ML PREMIX 100 MG IV (12:14)
--- NOTE | 2022-07-20 12:16 | PM.OP ---
Operative Report Date of procedure: July 20, 2022 Pre-op diagnosis: Refractory right distal ureteral stone Post-op diagnosis: Refractory right distal ureteral stone Procedure done: 1. Cystoscopy, RIGHT retrograde ureteropyelogram 2. RIGHT: Ureteroscopy, laser, stent Implants: Ureteral stent 6 Vietnamese by 28 cm without string Specimens removed/disposition: Stone fragments Pathology: Stone fragments Surgeon: Harvey Estimated blood loss: Minimal Urine output: Not measured Complications: None Findings: 1. Anesthesia: LMA 2. Condition: Stable 3. Disposition: PACU 4. Findings: Stone in the expected position on retrograde ureteropyelogram. Confirmed to be impacted on ureteroscopy but was able to be completely fragmented with all the fragments removed via ureteroscopic laser lithotripsy basketing grasping and flushing. Stent left indwelling (6 Vietnamese by 28 cm double-pigtail without string. Brief History: Ms. Brasher is a very pleasant 52-year-old white female diagnosed last year with a right ureteral calculus. She tried a fairly prolonged course of conservative management to see if she could pass a stone but it failed to do so. At 1 point she was scheduled for endoscopic treatment of the stone but changed her mind and postponed. Recently after a long absence from the clinic she developed increasing renal colic and was seen in the emergency department with a CT scan demonstrating new onset of moderate to severe hydronephrosis down to the level of the stone. The stone had shown some distal migration from previous CT scan. Initial CT scan at diagnosis did not show significant obstructive changes like the second CT scan recently Because of the concern of the timeframe in which the stone had been present in her ureter we talked a lot about the potential for impaction and difficult access to the stone from retrograde approach. Talked about staging procedure with stent placement being the top priority in order to protect the kidney and then if unable to access the stone repeat ureteroscopy 2 to 3 weeks later after passive dilation from the stent. If unable to advance anything past the stone then she would require interventional radiology for antegrade access hopefully antegrade stent placement She and her both expressed understanding regarding my concerns about the potential findings based on the duration of the stone in the ureter. Procedure: After routine preoperative evaluation examination and obtaining of informed consent she was taken to the operating suite on 07/20/2022 where general anesthesia was administered without difficulty after appropriate timeout was performed, SCDs confirmed to be functioning, preoperative antibiotics administered, beta-serena protocol confirmed. Prepped and draped in usual sterile fashion in dorsolithotomy position paying careful attention avoiding pressure points. 21 Vietnamese cystoscope with 30 degree lens was introduced into urethra meatus and advanced into the bladder to videoscopy. Bladder was systematically examined. There were no stones. An 8 Vietnamese cone-tip catheter was intubated into the right ureteral orifice for right retrograde ureteropyelogram demonstrating: Normal course and caliber of the ureter distal to the filling defect consistent with a stone. It took an increased pressure beyond normal to be able to push any of the contrast proximal to the stone. This was consistent with the findings of tightly impacted stone Flexible tip guidewire was then advanced up the ureter to the stone but would not easily go by. An open-ended ureteral catheter was advanced over the wire and this allowed passage of the wire beyond the stone up into the kidney and curling in the upper pole calyx area. The wire was secured to the drapes as a safety wire. A 7 Vietnamese offset semirigid ureteroscope was then advanced easily up the right ureter without dilation. The area of the ureter just at the level and distal to the stone was very inflamed and the stone was impacted. I could see the discoloration of the stone through the impaction membrane. A 365 ?m thulium superpulse laser fiber was then utilized to open this membrane and expose the stone. The stone was exposed in its distal aspect and it was clear that there was still some impaction laterally in the ureter but the stone was started to be fragmented. Fragmentation was continued essentially hollowing out to the stone and then working to fragment the impacted pieces and dislodge them from the wall. Fragments were removed intermittently with grasping forceps and flushing them out of the ureter eventually all the fragments were cleared from the impaction site with flushing and grasping forceps. The area was very inflamed. The scope was then passed into the ureter more proximal to the impaction site and there were several fragments that had migrated. Most of more small enough to be removed easily with a X catch basket. One fragment was large enough to use a grasping forcep on it. Final inspection of impaction site showed no residual embedded stones. A 6 Vietnamese by 28 cm double-pigtail stent was selected for postop indwelling stent for healing purposes. Cystoscope was backloaded over the safety wire and the stent was passed without difficulty over the guidewire through the cystoscope into appropriate position as confirmed via fluoroscopy and cystoscopy. Stent was confirmed to be functioning. The stone fragments that had been dropped in the bladder or flushed into the bladder we then washed free from the bladder with the scope. Stent was again confirmed to be functioning and the procedure was completed by draining her bladder. She tolerated the procedure well without complications and was awakened in the operating room and returned to the recovery room in stable condition. Plans: 1. Anticipate discharge from outpatient surgery 2. We will plan on leaving the stent in place for at least a month. We will talk about the option of reviewed and consider the above information for this visit evaluating the ureter with ureteroscopy for final decision of stent removal. This would be because of the severe impaction changes noted above.
[2022-07-20] MEDS: iohexol 300 mg/mL 50 mL Btl (OR ONLY) XX (12:54)
--- NOTE | 2022-07-20 13:49 | SUR.PHASEI ---
1337 PT TO PACU 5 AWAKE ALERT TALKATIVE, NO OBVIOUS DISTRESS, PT ABDOMEN SOFT AND NON TENDER, IV TO RT WRIST #20 WITH 300NS AT KVO RATE PER GRAVITY, ID BRACELET TO RT WRIST PT ID'D WITH 2 IDENTIFIERS. BILAT SCDS.
--- NOTE | 2022-07-20 14:10 | SUR.PHASEI ---
1359 PT AWAKE ALERT , WANTS COKE TO SIP ON AND PT WANTS TO SEE FAMILY, PT DENIES PAIN, VSS ABDOMEN SOFT NON TENDER, PT TO OPS BAY 3 HANDOFF AT BEDSIDE TO RAY RN.
== END 2022-07-20 14:36 | disposition home or self-care (01) ==
PROVIDERS: Visit Provider Urology
PROC: 0TJB8ZZ Inspection of Bladder, Via Natural or Artificial Opening Endoscopic (ICD-10-PCS; CPT 52000; principal; 2022-07-20 10:40)
PROC: (CPT 74420; 2022-07-20 10:40)
PROC: 0TJ98ZZ Inspection of Ureter, Via Natural or Artificial Opening Endoscopic (ICD-10-PCS; CPT 52351; 2022-07-20 10:40)
PROC: (CPT 52356; 2022-07-20 10:40)
PROC: (CPT 50605; 2022-07-20 10:40)
DX: N20.1 Calculus of ureter (principal); F17.210 Nicotine dependence, cigarettes, uncomplicated
CPT/HCPCS: 52356; 74018; 76000; 82365; 88300; C2625; J1100; J1956; J2250; J2405; J2704; J3010; J7030

== ENCOUNTER 2022-08-15 12:41 | Outpatient (CLI) | payer BC, MEDICAID, SELFPAY ==
--- NOTE | 2022-08-15 12:49 | XR_ITS ---
WS: [id number] Exam: XR KUB [id number] Date/Time of Exam: 08/15/2022 12:49 PM Reason For Exam: calculus of ureter No bowel obstruction or free air. A right-sided ureteral catheter is in place appearing to be in sati sfactory location. Calcifications superimpose both kidneys and apparently represent known renal stone s. No sign of organ enlargement. Signs of previous cholecystectomy. Regional bony elements are intact . Nonspecific pelvic calcifications. XR/XR KUB [id number] IMPRESSION: 1. Right-sided ureteral catheter appearing to be in appropriate location. 2. Calcifications superimposing both kidneys apparently representing known yesenia l stones. 3. No acute abdominal process.
== END 2022-08-15 12:42 | disposition home or self-care (01) ==
LOC: RAD 12:42
PROVIDERS: Visit Provider Urology
DX: N20.1 Calculus of ureter (principal); N20.0 Calculus of kidney
CPT/HCPCS: 74018

== ENCOUNTER 2022-09-07 07:24 | Day surgery (SDC) | payer BC, MEDICAID, SELFPAY ==
--- NOTE | 2022-09-07 | SCC_ITS ---
Procedure done: 1. Cystoscopy, remove RIGHT ureteral stent 2. Right ureteroscopy, no stent 10.2 seconds of fluoroscopic guidance, for a cumulative dose of 2.6 mGy, was provided to Dr. Gabriel by the radiology department. C-arm images of the abdomen were saved for the patient's permanent record. [facility]
--- NOTE | 2022-09-07 05:55 | P.HPUD_ITS ---
Surgery/Procedure H&P Update DATE OF PROCEDURE: September 07, 2022 DATE H&P PERFORMED: 08/15/22 H&P UPDATE INFORMATION: I have reviewed H&P completed within last 30 days, I have examined patient prior to procedure, No changes to prior documentation and H&P is in [facility] EMR on date indicated PREOP DIAGNOSIS: Refractory right distal ureteral stone PLANNED PROCEDURE: Operation Date: 09/07/22 08:45 Proposed Procedures p cystoscopy right ureteroscopy possible stent exchange [id number],N20.0,N20.1(Not Applicable) - Dejuan Gabriel MD s Ureteroscopy(Right) - Dejuan Gabriel MD s Ureteral Stent Exchange(Right) - Dejuan Gabriel MD
--- NOTE | 2022-09-07 07:31 | SC_ITS ---
WS: [id number] INTRAOPERATIVE TECHNIQUE: 2 Spot fluoroscopic images for intraoperative purposes. FLUOROSCOPY TIME: 10.2 seconds CLINICAL INFORMATION: Right ureteroscopy COMPARISON: None. FINDINGS: Intraoperative fluoroscopy used for RIGHT ureteroscopy. Glidewire is visualized in the RIGHT ureter a nd collecting system. SC/C-arm FL for Urology IMPRESSION: Images obtained for intraoperative purposes.
[2022-09-07 07:43] VITALS: BP 109/79; PULSE 86; RESP 18; TEMP 36.5; O2SAT 94
[2022-09-07] MEDS: sodium chloride 0.9% 1,000 ML 30 ML IV (07:48)
--- NOTE | 2022-09-07 08:03 | ANES.PREANE2 ---
Pre-Anesthetic Assessment Height/Weight: Height 1.7 m Weight 81.647 kg Temp Pulse Resp BP Pulse Ox O2 Del Method 97.7 F 86 18 109/79 94 09/07/22 07:43 09/07/22 07:43 09/07/22 07:43 09/07/22 07:43 09/07/22 07:43 09/07/22 07:43 Preop Diagnosis: Impacted right ureteral stone Operation Date: 09/07/22 08:45 Proposed Procedures p cystoscopy right ureteroscopy possible stent exchange 69643,N20.0,N20.1(Not Applicable) - Dejuan Gabriel MD s Ureteroscopy(Right) - Dejuan Gabriel MD s Ureteral Stent Exchange(Right) - Dejuan Gabriel MD Familial anesthetic complications: none Was Beta Paul taken within 24 hours: N/A Was Clonidine taken within 24 hours: N/A Last intake: Intake Last Liquid Date 09/06/22 Last Liquid Time 23:00 Last Solid Date 09/06/22 Last Solid Time 20:00 Social Tobacco and No alcohol Exam alert, oriented x 3, clear to auscultation bilaterally and regular rate & rhythm Airway Mallampati: Class II Dentition: full hydronephrosis Neuropsych Neuropathy Anesthetic Plan ASA status: 2 Anesthesia: General Risk of > 500 ml blood loss (7ml/kg in children): No Medications/Allergies Home Medications Medication Instructions Recorded Confirmed Last Taken Type Vitamin C 1 tab PO DAILY 09/06/22 09/07/22 09/06/22 History Vitamin D (with calcium) 1 tab PO DAILY 09/06/22 09/07/22 09/06/22 History Allergies Allergy/AdvReac Type Severity Reaction Status Date / Time No Known Allergies Allergy Verified 09/07/22 07:41 Current Medications Generic Name Dose Route Start Last Admin Trade Name Freq PRN Reason Stop Dose Admin Sodium Chloride 1,000 mls @ 30 mls/hr 09/07/22 07:30 09/07/22 07:48 Sodium Chloride 0.9% IV 09/08/22 07:29 30 mls/hr .Q24H ANNEL Administration PFSH Anesthesia Medical History (Updated 09/02/22 @ 11:19 by Delaney Spring DO) Bilateral renal stones Hydronephrosis Right distal ureteral calculus S/P extracorporeal shock wave therapy Surgical History (Updated 09/02/22 @ 10:56 by Delaney Spring DO) Hx of cholecystectomy Lap S/P ureteral stent placement Family History Father Lung disease emphysema Mother , at age 62 Cancer Diabetes Social History Smoking and tobacco status: current every day smoker cigarettes Packs smoked per day: 0.5 Alcohol intake: current Alcohol intake frequency: holidays/special occasions only Marital status: Current occupational status: retired History of recent travel: No Data Anesthesia Cardiac Studies: No Data to Display
[2022-09-07] MEDS: levofloxacin-dextrose 5 % 500 MG/100 ML PREMIX 100 MG IV (08:25)
--- NOTE | 2022-09-07 08:27 | PM.OP ---
Operative Report Date of procedure: September 07, 2022 Pre-op diagnosis: Impacted right ureteral stone Post-op diagnosis: Impacted right ureteral stone Procedure done: 1. Cystoscopy, remove RIGHT ureteral stent 2. Right ureteroscopy, no stent Surgeon: Harvey Estimated blood loss: Minimal Urine output: Not measured Complications: None Findings: Anesthesia: General Condition: Stable Disposition: PACU Intraoperative findings: Ureteral impaction site: Well-healed. No residual stones Stent status: No stent left indwelling Brief History: 52-year-old white female with a history of right distal ureteral stone with prolonged delay in treatment. Was found to be impacted and severely so. The stone was treated on 07/20/2022 with laser lithotripsy and cleared. The stent was left indwelling and she is back now for relook to make sure that the ureter is adequately healed in order to remove the stent or replace it if it is not. Procedure: After routine preoperative evaluation examination and obtaining of informed consent she was taken to the operating suite on 09/07/2022 where general anesthesia was administered without difficulty after appropriate timeout was performed, SCDs confirmed to be functioning, preoperative antibiotics administered, beta-serena protocol confirmed. Prepped and draped in the usual sterile fashion in dorsolithotomy position paying careful attention to avoiding pressure points. 21 Sammarinese cystoscope with 30 degree lens was introduced to the urethra meatus and advanced to the bladder without difficulty. The stent was identified in the expected position. No significant encrustation was noted. The distal aspect of the stent was grasped with grasping forceps and withdrawn through the urethral meatus and a flexible tip guidewire was passed through the stent and the stent removed. The wire was confirmed to be in the renal pelvis prior to removal of the stent. Wire secured to the drapes as a safety wire. 7.5 Sammarinese offset semirigid ureteroscope was then advanced next to the wire up the right ureter with careful inspection of the previous impaction site. Findings: Well-healed. No stones Scope was removed, wire was removed, bladder was drained and the procedure was completed. She tolerated the procedure well without complications and was awakened in the operating room and returned to the recovery room in stable condition. PLANS: 1. Anticipate discharge from outpatient surgery 2. Begin metabolic evaluation: 24-hour urine collection in approximately 1 month follow-up 1 month later with a KUB and for results of 24-hour urine
[2022-09-07 08:56] VITALS: BP 110/87; PULSE 84; RESP 17; TEMP 36.4; O2SAT 98
[2022-09-07 09:00] VITALS: BP 124/86; PULSE 79; RESP 10; O2SAT 99
[2022-09-07 09:05] VITALS: BP 131/90; PULSE 85; RESP 18; TEMP 36.1; O2SAT 95
[2022-09-07 09:12] VITALS: BP 126/81; PULSE 84; RESP 16; TEMP 36.1; O2SAT 93
[2022-09-07 09:22] VITALS: BP 122/87; PULSE 83; RESP 18; O2SAT 93
--- NOTE | 2022-09-07 13:55 | ANE.PACU2 ---
Inpatient post-anesthesia follow up: Airway intact: Yes Vital signs: Temperature 97.0 F Pulse Rate 83 Respiratory Rate 18 Blood Pressure 122/87 Pulse Oximetry 93 Oxygen Delivery Me thod Room Air Oxygen Flow Rate 6 Fraction of Inspir ed Oxygen Hydration adequate: Yes Nausea and vomiting: No Pain level: 1 Mental status: Baseline
== END 2022-09-07 09:35 | disposition home or self-care (01) ==
PROVIDERS: PCP Family Medicine; Visit Provider Urology
PROC: 0TJB8ZZ Inspection of Bladder, Via Natural or Artificial Opening Endoscopic (ICD-10-PCS; CPT 52000; principal; 2022-09-07 08:45)
PROC: 0TJ98ZZ Inspection of Ureter, Via Natural or Artificial Opening Endoscopic (ICD-10-PCS; CPT 52351; 2022-09-07 08:45)
PROC: (CPT 52310; 2022-09-07 08:45)
DX: N20.1 Calculus of ureter (principal); F17.210 Nicotine dependence, cigarettes, uncomplicated
CPT/HCPCS: 52351; 76000; J1100; J1956; J2405; J2704; J3010; J7030

== ENCOUNTER → 2022-09-23 08:23 | Outpatient (BNVA) | payer BC, MEDICAID, SELFPAY | PROVIDERS: PCP Family Medicine; Visit Provider Family Medicine | DX: R73.9 Hyperglycemia, unspecified (principal); Z13.6 Encounter for screening for cardiovascular disorders | CPT/HCPCS: 80053; 80061; 83036; 85025 ==

== ENCOUNTER → 2022-11-08 09:49 | Outpatient (BNVA) | payer BC, MEDICAID, SELFPAY | PROVIDERS: PCP Family Medicine; Visit Provider Family Medicine | DX: Z01.419 Encounter for gynecological examination (general) (routine) without abnormal findings (principal); J06.9 Acute upper respiratory infection, unspecified | CPT/HCPCS: 88175 ==

== ENCOUNTER 2022-11-10 13:22 | Outpatient (CLI) | payer BC, MEDICAID, SELFPAY ==
--- NOTE | 2022-11-10 13:28 | XR_ITS ---
WS: [id number] Exam: XR KUB [id number] Date/Time of Exam: 11/10/2022 1:28 PM Reason For Exam: BILATERAL RENAL STONE No bowel obstruction or free air. Numerous calcifications superimpose both kidneys apparently represe nting known renal stones. Many more stones in the left kidney than the right. No sign of organ enlarg ement. Signs of prior cholecystectomy. Regional bony elements are intact. XR/XR KUB [id number] IMPRESSION: 1. No acute abdominal process. 2. Numerous small bilateral renal stones many more in the left kidney than the right.
== END 2022-11-10 13:23 | disposition home or self-care (01) ==
LOC: RAD 13:23
PROVIDERS: PCP Family Medicine; Visit Provider Urology
DX: N20.0 Calculus of kidney (principal)
CPT/HCPCS: 74018; 81003

== ENCOUNTER 2022-12-01 10:24 | Outpatient (CLI) | payer BC, MEDICAID, SELFPAY ==
[2022-12-01 11:52] LABS: Anion Gap 15.2 (5-19); Blood Urea Nitrogen 19 mg/dL (6-20); Calcium 9.9 mg/dL (8.5-10.5); Carbon Dioxide 23 mmol/L (22-29); Chloride 104 mmol/L (98-107); Glomerular Filtration Rate 130.1 mL/min (90-130); Glucose 167 mg/dL (65-115); Osmolality Calculated 292 mOsm/kg (285-295); Phosphorus 2.9 mg/dL (2.5-4.5); Potassium 4.2 mmol/L (3.5-5.1); Sodium 138 mmol/L (136-145); Uric Acid 5.8 mg/dL (2.4-5.7)
== END 2022-12-01 10:25 | disposition home or self-care (01) ==
LOC: LAB 10:26
PROVIDERS: PCP Family Medicine; Visit Provider Urology
DX: N20.0 Calculus of kidney (principal)
CPT/HCPCS: 36415; 80048; 81003; 82131; 82140; 82340; 82436; 82507; 82570; 83735; 83935; 84100; 84300; 84550

== ENCOUNTER 2022-12-07 15:11 | Outpatient (CLI) | payer BC, MEDICAID, SELFPAY ==
--- NOTE | 2022-12-07 15:00 | CT_ITS ---
WS: [id number] LDCT LUNG CANCER SCREENING HISTORY: screening TECHNIQUE: Axial imaging performed from the apices to 1 cm below the costophrenic angles. Coronal and sagittal reformats are submitted with axial MIP series. All CT scans at [facility] use at least one of these dose optimization techniques: automated exposure control; mA and/or kV adjustment per patient size (includes targeted exams where dose is matched to clinical indication); or iterativ e reconstruction. DLP: 81.49 mGy.cm DIvol: Mean CTDIvol: 1.60 (mGy) COMPARISON: None available. Diagnostic quality: Satisfactory Lung Nodules: None. No endobronchial lesions. Lungs: Very mild hyperexpansion. Heart: Normal size heart. No pericardial effusion. Other findings: No adenopathy. Mild thyromegaly. Bilateral adrenal adenomas. Prior cholecystectomy. N umerous nephrolithiasis LEFT kidney upper pole. CT/CT lung screening [id number] IMPRESSION: LUNG-RADS: 1-Negative FOLLOW UP: 12 Month: Continue annual screening with LDCT OTHER FINDINGS (S MODIFIER): None.
== END 2022-12-07 15:12 | disposition home or self-care (01) ==
LOC: RAD 15:11
PROVIDERS: PCP Family Medicine; Visit Provider Family Medicine
DX: Z12.2 Encounter for screening for malignant neoplasm of respiratory organs (principal); F17.219 Nicotine dependence, cigarettes, with unspecified nicotine-induced disorders
CPT/HCPCS: 71271

== ENCOUNTER → 2023-01-04 13:07 | Outpatient (BNVA) | payer BC, MEDICAID, SELFPAY | PROVIDERS: PCP Family Medicine; Visit Provider Urology | DX: N20.0 Calculus of kidney (principal); E83.52 Hypercalcemia | CPT/HCPCS: 81003; 82310; 83970 ==

== ENCOUNTER 2023-01-11 06:01 | Day surgery (SDC) | payer BC, MEDICAID, SELFPAY ==
[2023-01-09 08:12] VITALS: BMI 27.3
[2023-01-11 06:19] VITALS: BP 130/90; PULSE 96; RESP 18; TEMP 36.1; O2SAT 95
[2023-01-11] MEDS: sodium chloride 0.9% 1,000 ML 30 ML IV (06:26)
--- NOTE | 2023-01-11 06:51 | ANES.PREANE2 ---
Pre-Anesthetic Assessment Height/Weight: Height 1.73 m Weight 81.647 kg Temp Pulse Resp BP Pulse Ox O2 Del Method 97 F L 96 18 130/90 95 01/11/23 06:19 01/11/23 06:19 01/11/23 06:19 01/11/23 06:19 01/11/23 06:19 01/11/23 06:19 Preop Diagnosis: screening Operation Date: 01/11/23 07:00 Proposed Procedures p Colonoscopy 50262,Z12.11(Not Applicable) - Kam Lewis DO Familial anesthetic complications: none Was Beta Paul taken within 24 hours: N/A Was Clonidine taken within 24 hours: N/A Last intake: Intake Last Liquid Date 01/10/23 Last Liquid Time 23:00 Last Solid Date 01/10/23 Last Solid Time 07:00 Social Tobacco 1 pack(s) per day Exam alert, oriented x 3, clear to auscultation bilaterally and regular rate & rhythm Airway Submandibular: within normal limits Cervical ROM: within normal limits Mallampati: Class I History/ROS Other Pulmonary Chronic Obstructive Pulmonary Disease CV/HEM None reported kidney stones Hepatic None reported GI None reported Metabolic Diabetes Mellitus (pre diabetic) and Hyperlipidemia [facility] Lower Back Pain and Weakness (BLE) Neuropsych None reported Anesthetic Plan ASA status: 2 Anesthesia: MAC Risk of > 500 ml blood loss (7ml/kg in children): No Medications/Allergies Home Medications Medication Instructions Recorded Confirmed Last Taken Type No Known Home Medications 01/09/23 01/09/23 Unknown History Allergies Allergy/AdvReac Type Severity Reaction Status Date / Time No Known Allergies Allergy Verified 01/09/23 08:11 Current Medications Generic Name Dose Route Start Last Admin Trade Name Freq PRN Reason Stop Dose Admin Sodium Chloride 1,000 mls @ 30 mls/hr 01/11/23 06:15 01/11/23 06:26 Sodium Chloride 0.9% IV 01/12/23 06:14 30 mls/hr .Q24H ANNEL Administration PFSH Anesthesia Medical History (Updated 01/04/23 @ 18:28 by Dejuan Gabriel MD) Bilateral renal stones Hydronephrosis Leg weakness, bilateral Muscle cramping Numbness of right hand Right distal ureteral calculus S/P extracorporeal shock wave therapy Surgical History Hx of cholecystectomy Lap S/P ureteral stent placement Family History Father Lung disease emphysema Mother , at age 62 Cancer Diabetes Social History Smoking and tobacco status: current every day smoker cigarettes Packs smoked per day: 0.5 Alcohol intake: current Alcohol intake frequency: holidays/special occasions only Marital status: Current occupational status: retired History of recent travel: No Data Anesthesia Cardiac Studies: No Data to Display
--- NOTE | 2023-01-11 07:05 | P.HP_ITS ---
Providers/Chief Complaint Primary Care Provider: Delaney Spring DO Chief Complaint: Encounter for screening History of Present Illness Marah Brasher is a 52 year old female who presents today for her first screening colonoscopy. She had a diagnostic colonoscopy in 2008 that was within normal limits. She denies any family history of colon cancer, abdominal pain, nausea, emesis, diarrhea, constipation, hematochezia and/or melena. Review of Systems General: Reports: 10 or more systems reviewed and unremarkable except in HPI and below Medications/Allergies Home Medications Medication Instructions Recorded Confirmed Last Taken Type No Known Home Medications 01/09/23 01/09/23 Unknown History Allergies Allergy/AdvReac Type Severity Reaction Status Date / Time No Known Allergies Allergy Verified 01/09/23 08:11 PFSH Acute PFSH: Medical History (Updated 01/11/23 @ 07:06 by Kam Lewis DO) Bilateral renal stones Hydronephrosis Leg weakness, bilateral Muscle cramping Numbness of right hand Right distal ureteral calculus S/P extracorporeal shock wave therapy Surgical History Hx of cholecystectomy Lap S/P ureteral stent placement Family History Father Lung disease emphysema Mother , at age 62 Cancer Diabetes Social History Smoking and tobacco status: current every day smoker cigarettes Packs smoked per day: 0.5 Alcohol intake: current Alcohol intake frequency: holidays/special occasions only Marital status: Current occupational status: retired History of recent travel: No Vitals/I&O/Wt Last Vital Signs Temp 97 F L 01/11/23 06:19 Pulse 96 01/11/23 06:19 Resp 18 01/11/23 06:19 BP 130/90 01/11/23 06:19 Pulse Ox 95 01/11/23 06:19 O2 Del Method 01/11/23 06:19 Weight last 48 hrs Weight 180 lb Physical Exam Narrative: General : Patient is well developed , no acute distress, oriented x3 Head : Normal cephalic, a-traumatic. Ears : Pinnae and external canal are normal. Hearing is normal. Eyes : PERRLA, Sclera and injection are normal. No conjunctival discharge. Nose : Mucous membranes are without erythema. Throat : buccal mucosa is normal, gums are without significant recession or hypertrophy. Lungs : Equal chest rise bilaterally, no use of accessory muscles, trachea is midline. Cor : Rate and rhythm are normal. Abdomen : Soft, ND, NT, no g/r/m Extremities : No edema, no cyanosis or clubbing, dorsalis pedis pulses are present bilaterally, non-tender to palpation of calves. Upper extremities are normal bilaterally. Back : non-tender to palpation, no CVA tenderness. Neuro : CN II - XII intact, Upper and lower extremities have equal and full strength A&P Assessment and plan (1) Colon cancer screening: Plan Colonoscopy The risks and benefits of the procedure, including bleeding, infection, in testinal perforation requiring surgery, missed lesion were explained to the patient. The patient is understanding of the risks and wishes to proceed. Attestations Medical Necessity Statement*: Home Coding Level of Care Code Acute Code for Chg Fwd Diagnoses Colon cancer screening Z12.11
[2023-01-11 07:28] VITALS: BP 130/89; PULSE 88; RESP 12; TEMP 36.1; O2SAT 98
[2023-01-11 07:44] VITALS: BP 113/86; PULSE 79; RESP 18; O2SAT 98
--- NOTE | 2023-01-11 13:56 | ANE.PACU2 ---
Inpatient post-anesthesia follow up: Airway intact: Yes Vital signs: Temperature 97.0 F Pulse Rate 79 Respiratory Rate 18 Blood Pressure 113/86 Pulse Oximetry 98 Oxygen Delivery Me thod Room Air Oxygen Flow Rate Fraction of Inspir ed Oxygen Hydration adequate: Yes Nausea and vomiting: No Pain level: 1 Mental status: Baseline
== END 2023-01-11 08:02 | disposition home or self-care (01) ==
PROVIDERS: PCP Family Medicine; Visit Provider Surgery
PROC: 0DJD8ZZ Inspection of Lower Intestinal Tract, Via Natural or Artificial Opening Endoscopic (ICD-10-PCS; CPT 45378; principal; 2023-01-11 07:00)
DX: Z12.11 Encounter for screening for malignant neoplasm of colon (principal); F17.210 Nicotine dependence, cigarettes, uncomplicated; K57.30 Diverticulosis of large intestine without perforation or abscess without bleeding; D12.3 Benign neoplasm of transverse colon; D12.4 Benign neoplasm of descending colon; J44.9 Chronic obstructive pulmonary disease, unspecified; E11.9 Type 2 diabetes mellitus without complications; E78.5 Hyperlipidemia, unspecified
CPT/HCPCS: 45385; 88305; J2704; J7030

== ENCOUNTER 2023-01-27 14:06 | Outpatient (CLI) | payer BC, MEDICAID, SELFPAY ==
--- NOTE | 2023-01-27 14:30 | XR_ITS ---
WS: [id number] DEXA (DUAL ENERGY X-RAY ABSORPTIOMETRY) Bone mineral density was performed using a [employer] machine. HISTORY: postmenopausal COMPARISON: None available. Lumbar spine BMD (L1-L4): 0.793 g/cm2 T score: -3.2 Z score: -3.4 Total hip BMD: Left: 0.818 g/cm2. T score: -1.5 Z score: -1.5 Right: 0.744 g/cm2. T score: -2.1 Z score: -2.0 10 year probability of a major osteoporotic fracture is 7.5%. XR/XR DEXA axial skeleton* 66067 IMPRESSION: OSTEOPOROSIS based upon the WHO classification for females.
== END 2023-01-27 14:07 | disposition home or self-care (01) ==
PROVIDERS: PCP Family Medicine; Visit Provider Family Medicine
DX: Z78.0 Asymptomatic menopausal state (principal); M81.0 Age-related osteoporosis without current pathological fracture
CPT/HCPCS: 77080

== ENCOUNTER → 2023-03-14 08:53 | Outpatient (BNVA) | payer BC, MEDICAID, SELFPAY | PROVIDERS: PCP Family Medicine; Referring Provider Urology; Visit Provider Internal Medicine | DX: E21.3 Hyperparathyroidism, unspecified (principal); M81.0 Age-related osteoporosis without current pathological fracture; N20.0 Calculus of kidney; R82.994 Hypercalciuria | CPT/HCPCS: 36415; 84439; 84443 ==

== ENCOUNTER 2023-05-04 12:00 | Outpatient (CLI) | payer BC, MEDICAID, SELFPAY ==
[2023-05-04 13:12] LABS: Free T4 Free Thyroxine 1.78 ng/dL (0.82-1.77); Thyroid Stimulating Hormone 0.65 uIU/mL (0.27-4.20)
[2023-05-05 12:05] LABS: T3 Total 146 ng/dL (76-181)
== END 2023-05-04 12:01 | disposition home or self-care (01) ==
LOC: LAB 12:15
PROVIDERS: PCP Family Medicine; Visit Provider Internal Medicine
DX: E21.3 Hyperparathyroidism, unspecified (principal)
CPT/HCPCS: 36415; 84439; 84443; 84480

== ENCOUNTER → 2023-05-15 10:17 | Outpatient (BNVA) | payer BC, MEDICAID, SELFPAY | PROVIDERS: PCP Family Medicine; Visit Provider Internal Medicine | DX: G62.9 Polyneuropathy, unspecified (principal); E21.3 Hyperparathyroidism, unspecified; R79.89 Other specified abnormal findings of blood chemistry; M81.0 Age-related osteoporosis without current pathological fracture; R82.994 Hypercalciuria; M79.602 Pain in left arm; N20.0 Calculus of kidney | CPT/HCPCS: 36415; 80053; 82310; 82607; 82746; 83036; 83970; 84100; 84439; 84443; 84480 ==

== ENCOUNTER → 2023-06-22 15:00 | Outpatient (BNVA) | payer BC, MEDICAID, SELFPAY | PROVIDERS: PCP Family Medicine; Visit Provider Internal Medicine Cardiovascular Disease | DX: M79.602 Pain in left arm (principal); R07.9 Chest pain, unspecified; E21.3 Hyperparathyroidism, unspecified; E78.5 Hyperlipidemia, unspecified | CPT/HCPCS: 93005 ==

== ENCOUNTER 2023-07-25 07:00 | Outpatient (CLI) | payer BC, MEDICAID, SELFPAY ==
[2023-07-25 07:53] LABS: Calcium 9.2 mg/dL (8.5-10.5)
[2023-07-25 07:59] LABS: Parathyroid Hormone 48.9 pg/mL (15-65)
[2023-07-25 08:02] LABS: Free T4 Free Thyroxine 1.54 ng/dL (0.82-1.77); Thyroid Stimulating Hormone 1.09 uIU/mL (0.27-4.20)
== END 2023-07-25 07:01 | disposition home or self-care (01) ==
PROVIDERS: PCP Family Medicine; Referring Provider Internal Medicine Cardiovascular Disease; Visit Provider Internal Medicine
DX: E21.3 Hyperparathyroidism, unspecified (principal)
CPT/HCPCS: 36415; 82310; 83970; 84439; 84443

== ENCOUNTER 2023-10-17 09:05 | Outpatient (CLI) | payer BC, MEDICAID, SELFPAY ==
--- NOTE | 2023-10-17 09:15 | USCV_ITS ---
Marah Brasher Age: 53 Gender: F : 1970 Exam Date: 10/17/2023 09:33 Ordering Phys: Keshav Hernández MD ([email or web address]) Technologist: Crescencio Alba Exam Location: [facility] [place] Indication: leg pain Risk Factors: Previous Vascular Surgery: RIGHT LEFT BP: 110.0 / 70.00 BP: 130.0/ 75.00 0 0 Waveform Velocity (cm/s) Velocity (cm/s) Waveform Triphasic 78.5 Iliac Prox 86.2 Triphasic Triphasic 76.9 Iliac Mid 81.6 Triphasic Triphasic 65.3 Iliac Distal 56.7 Triphasic Triphasic 61.4 SYSTEMS TEST TECHNICIAN 60.6 Triphasic Triphasic 76.1 SFA Prox 70.7 Triphasic Triphasic 69.9 SFA Mid 70.7 N/A Triphasic 69.9 SFA Dist 88.6 Triphasic Triphasic 62.9 POP 65.3 Triphasic Triphasic 46.6 INSTRUMENT FITTER 39.6 Triphasic Triphasic 37.0 DPA 35.0 Triphasic 0.9 VONDA 0.9 FINDINGS Resting VONDA of 0.92 bilaterally Triphasic Doppler waveforms bilaterally. Normal Doppler flow velocities bilaterally. Intimal thickening and minimal plaques in the iliac and common femoral arteries bilaterally CONCLUSIONS Minimally diminished resting ABIs bilaterally Normal arterial Doppler waveforms and velocities bilaterally. Intimal thickening and minimal plaques in the iliac and common femoral arteries bilaterally. No significant arterial obstruction, based on the above findings. Dr Keshav Hernández MD [facility] (Electronically Signed) Final Date: 18 October 2023 08:24 S
== END 2023-10-17 09:06 | disposition home or self-care (01) ==
LOC: RAD 09:05
PROVIDERS: PCP Family Medicine; Visit Provider Internal Medicine Cardiovascular Disease
DX: I70.203 Unspecified atherosclerosis of native arteries of extremities, bilateral legs (principal); M79.605 Pain in left leg; M79.604 Pain in right leg
CPT/HCPCS: 93925

== ENCOUNTER 2023-10-31 12:56 | Outpatient (CLI) | payer BC, MEDICAID, SELFPAY ==
[2023-10-31 12:58] VITALS: BMI 28.1
--- NOTE | 2023-10-31 12:59 | ECG_ITS ---
[facility] Test Date: 2023-10-31 Pat Name: Marah Brasher Department: Room: Gender: Female Operations Dispatcher: Debbie Ayoub : 1970 Requested By: Keshav Hernández Order Number: [id number] Tyron MD: Keshav Hernández M.D. Interpretive Statements NAME OF STUDY: TREADMILL STRESS ECHOCARDIOGRAM INDICATION: Chest Pain PROCEDURE: At the baseline, the patient's blood pressure was 119/96 with a heart rate of 107. The baseline electrocardiogram showed normal sinus rhythm with normal ST-Ts.. The patient exercised for 7 minutes and 15 seconds on a standard Uzair protocol. Patient attained a maximum heart rate of 148 beats per minute(88% of the maximum predicted heart rate) with a blood pressure at the peak exercise of 179/69 mm Hg. The EKG at the peak exercise revealed did not reveal any significant changes. Patient did not have any chest pain or any significant cardiac arrhythmias with the exercise During the recovery phase, there were no new changes. Blood pressure at the end of the recovery phase was 133/102 mm Hg with a heart rate of 99 per minute. CONCLUSION: 1. Normal EKG response to treadmill exercise 2. No exercise-induced chest pain or cardiac arrhythmia 3. Fair exercise tolerance, attained a maximum of 10.2 METs Electronically Signed On 11-03-2023 11:25:47 SUPPORT SERVICES MANAGER by Keshav Hernández M.D. [email or web address]
--- NOTE | 2023-10-31 12:59 | USCV_ITS ---
Stress Echo Marah Brasher Age: 53 Gender: F : 1970 Exam Date: 10/31/2023 13:19 Ordering Phys: Keshav Hernández MD ([email or web address]) Technologist: Crescencio Alba Exam Location: [facility] [place] Indication: Chest Pain Rhythm: Sinus Patient History: Family Hx CAD Cardiac Medications: None Medications in past 24 hours: None Contrast: Stress Results Protocol: Uzair Total dose(mL): Exercise Duration (min:sec): 7:15 METS: 10.2 Resting HR: 99 Resting BP: 119 / 96 Peak HR: 148 Peak BP: 179 / 102 Max Predicted HR: 168 88 % Max Predicted HR Target HR: 143 Double Product: 92486 Stress Summary: The patient's target heart rate was achieved BP Response: Normal Reason for Termination: Test terminated after reaching target heart rate (85% max predicted) Cardiac Symptoms: Short of Breath ECG Analysis Resting ECG: Please refer to the separate report Stress ECG: Please refer to the separate report Arrhythmia: Please refer to the separate report MEASUREMENTS (Male/Female) Normal Values FINDINGS The baseline echocardiogram revealing normal LV size and ejection fraction. Mild concentric left trickle hypertrophy. Minimally thickened mitral valve. No pericardial effusion. The aortic root was of normal size and was also normal size. With a peak exercise, there was good augmentation of all the segments with no exercise-induced wall motion normalities. During the recovery phase, there were no new changes CONCLUSIONS 1. Normal echocardiographic response to exercise . 2. Low probability for coronary ischemia, based on the above findings Dr Keshav Hernández MD [facility] (Electronically Signed) Final Date: 01 November 2023 21:42 S
[2023-10-31 13:54] VITALS: BP 133/98; PULSE 99
== END 2023-10-31 12:57 | disposition home or self-care (01) ==
PROVIDERS: PCP Family Medicine; Visit Provider Internal Medicine Cardiovascular Disease
DX: R07.9 Chest pain, unspecified (principal)
CPT/HCPCS: 93017; 93350

== ENCOUNTER → 2023-11-28 15:00 | Outpatient (BNVA) | payer BC, MEDICAID, SELFPAY | PROVIDERS: PCP Family Medicine; Visit Provider Internal Medicine | DX: E21.3 Hyperparathyroidism, unspecified (principal); E78.5 Hyperlipidemia, unspecified; R82.994 Hypercalciuria; M81.0 Age-related osteoporosis without current pathological fracture | CPT/HCPCS: 82306; 85007; 85025 ==

== ENCOUNTER 2024-02-14 05:36 | Emergency (ER) | payer BC, MEDICAID, SELFPAY ==
[2024-02-14 05:40] VITALS: BP 161/129; PULSE 103; RESP 20; TEMP 36.9; O2SAT 94; BMI 29.7
--- NOTE | 2024-02-14 05:47 | CTR_ITS ---
PROCEDURE INFORMATION: Exam: CT Abdomen And Pelvis Without Contrast Exam date and time: 02/14/2024 5:59 AM Age: 53 years old Clinical indication: Abdominal pain; Flank; Right; Prior surgery; Surgery date: 6+ months; Surgery type: Gb, ureteral stent; Additional info: Right flank pain TECHNIQUE: Imaging protocol: Computed tomography of the abdomen and pelvis without contrast. Radiation optimization: All CT scans at this facility use at least one of these dose optimization techniques: automated exposure control; mA and/or kV adjustment per patient size (includes targeted exams where dose is matched to clinical indication); or iterative reconstruction. COMPARISON: CT abdomen pelvis wo con [id number] 07/11/2022 6:33 PM RADIATION DOSE METRICS: Total DLP (mGy-cm): 729.5 FINDINGS: Liver: Stable likely hemangioma in the right lobe of the liver. Gallbladder and bile ducts: Cholecystectomy. Pancreas: Normal. No ductal dilation. Spleen: Normal. No splenomegaly. Adrenal glands: Normal. No mass. Kidneys and ureters: Stable right renal cyst. Stable bilateral nonobstructing renal calculi. Unchanged adrenal nodules, each likely a nonfunctioning adenoma based on the macroscopic fat present. The largest is on the left and measures 3 cm in size. Stomach and bowel: Diverticulosis without evidence of diverticulitis. Appendix: No evidence of appendicitis. Intraperitoneal space: Unremarkable. No free air. No significant fluid collection. Vasculature: Unremarkable. No abdominal aortic aneurysm. Lymph nodes: Unremarkable. No enlarged lymph nodes. Urinary bladder: Unremarkable as visualized. Reproductive: Unremarkable as visualized. Bones/joints: Unremarkable. No acute fracture. Soft tissues: Unremarkable. CT/CT kidney stone [id number] IMPRESSION: 1. No acute subdiaphragmatic pathology. 2. Numerous chronic findings including bilateral nonobstructing renal calculi.
--- NOTE | 2024-02-14 05:48 | ED_ITS ---
Documented by User: Oh Velasquez MD 02/14/24 05:54 HPI - General Adult 2 General: Chief complaint: General Medical Stated complaint: Malissa Rivers Stone Time Seen by Provider: 02/14/24 05:52 History of Present Illness: 53-year-old female presents emergency de partment complaints of right flank and back pain that started last night. She states the pain initially started out as a intermittent sharp stabbing pain and now has become a continuous sharp stabbing pain that is a 10 out of 10 that radiates around to her right lower abdomen. She does endorse associated nausea without vomiting. She states she does have a history of kidney stones in the past and has seen a urologist for that but he is now retired. She states nothing seems to make the pain better nothing seems to make it worse. She denies fevers chills or night sweats. Associated symptoms: Reports nausea Review of Systems 2 General: Reports: 10 or more systems reviewed and unremarkable except in HPI and below GI: Reports: abdominal pain and nausea : Reports: flank pain PFSH ED 2 PFSH: Medical History Elevated white blood cell count Muscle cramping Numbness of right hand Leg weakness, bilateral Bilateral renal stones Hydronephrosis S/P extracorporeal shock wave therapy Right distal ureteral calculus Surgical History S/P ureteral stent placement Hx of cholecystectomy Lap Family History Father Lung disease emphysema Mother , at age 62 Cancer Diabetes Social History Smoking and tobacco/nicotine status: current every day tobacco/nicotine user cigarettes Packs smoked per day: 0.5 Alcohol intake: current Alcohol intake frequency: holidays/special occasions only Substance/Drug Use: current Substance/Drug use frequency: few times a month Marital status: Current occupational status: retired Physical Exam 2 Narrative: EXAM NARRATIVE: Constitutional: the patient appears well nourished and of normal development. Vital signs as documented. Obvious distress, in pain. Alert and oriented-to person, place, time and situation. Head, eyes, ears, nose, mouth, throat: Normocephalic, atraumatic. Pupils-equal, round, reactive to light. No scleral icterus. Normal-appearing external ears. Normal appearing nasal turbinates, no drainage. No obvious oral lesions, posterior oropharynx without erythema or exudates. Neck: Supple, trachea is midline, no lymphadenopathy, no jugular venous distension, thyromegaly, or carotid bruits. Carotid upstrokes are brisk bilaterally. Lungs: clear to auscultation to all lung ray. Symmetrical rise and fall of chest, no obvious signs of increased work of breathing at present. Cardiac: Sinus tachycardia on the cardiac care unit nurse, positive S1, S2. No murmurs, rubs or gallops that I can appreciate Abdomen: Soft, non-tender to palpation, normal active bowel sounds to all quadrants. No palpable masses, no organomegaly and abdominal bruits. Extremities: 2+ pulses in the upper extremities that are equal bilaterally, 2+ pulses in the lower extremities that are equal bilaterally. Non-edematous. Moves all extremities well, sensation to all extremities are noted. Skin: Warm, dry, intact. Back: Normal alignment, positive right CVA tenderness to palpation Course 2 Vital Signs: Vital signs: Vital Signs Temperature 98.5 F 02/14/24 05:40 Pulse Rate 73 02/14/24 08:05 Respiratory Rate 18 02/14/24 08:05 Blood Pressure 128/93 02/14/24 08:05 Pulse Oximetry 94 02/14/24 08:05 Oxygen Delivery Me thod Room Air 02/14/24 07:17 [facility] - General Adult Medical Decision Making Physical exam completed and documented, I will obtain a CBC, CMP, urinalysis and a CT scan renal stone protocol. I have provided IV fluid as well as Zofran for nausea and Toradol for pain control. I have discussed the patient's case with the on-coming physician <Dr. Morrison > and they have assumed care of the patient. We have discussed the current lab/radiographic results that have been resulted and the pending tests. Differential Diagnosis UTI, cystitis, pyelonephritis, renal calculi, renal colic, gastroenteritis Medical Records I reviewed the patient's medical records. Lab Data 02/14/24 05:42 02/14/24 05:42 Radiology Impressions Abdomen/Pelvis CT 02/14/24 05:47 IMPRESSION: 1. No acute subdiaphragmatic pathology. 2. Numerous chronic findings including bilateral nonobstructing renal calculi. Laboratory Results WBC 15.67 10^3/uL (3.29-11.43) H 02/14/24 05:42 RBC 5.40 10^6/uL (3.85-5.65) 02/14/24 05:42 Hgb 16.50 g/dL (11.27-16.99) 02/14/24 05:42 Hct 49.7 % (36-47) H 02/14/24 05:42 MCV 92.0 fl (85-98) 02/14/24 05:42 MCH 30.6 pg (27-33) 02/14/24 05:42 MCHC 33.2 g/dL (30-55) 02/14/24 05:42 RDW 12.8 % (12.1-15.1) 02/14/24 05:42 Plt Count 314 10^3/cmm (157-399) 02/14/24 05:42 MPV 9.7 fL (7.4-10.4) 02/14/24 05:42 Neut % (Auto) 58.4 % 02/14/24 05:42 Lymph % (Auto) 31.7 % 02/14/24 05:42 Price % (Auto) 7.7 % 02/14/24 05:42 Eos % (Auto) 1.5 % 02/14/24 05:42 Baso % (Auto) 0.4 % 02/14/24 05:42 Neut # (Auto) 9.15 10^3/uL (1.8-7.7) H 02/14/24 05:42 Lymph # (Auto) 5.0 10^3/uL (0.8-4.8) H 02/14/24 05:42 Price # (Auto) 1.2 10^3/uL (0.2-0.9) H 02/14/24 05:42 Eos # (Auto) 0.2 10^3/uL (0.0-0.8) 02/14/24 05:42 Baso # (Auto) 0.1 10^3/uL (0.0-0.1) 02/14/24 05:42 Nucleated RBC % (auto) 0 % 02/14/24 05:42 Nucleated RBCs # 0.0 /100WBC 02/14/24 05:42 Sodium 137 mmol/L (136-145) 02/14/24 05:42 Potassium 4.4 mmol/L (3.5-5.1) 02/14/24 05:42 Chloride 103 mmol/L (98-107) 02/14/24 05:42 Carbon Dioxide 20 mmol/L (22-29) L 02/14/24 05:42 Anion Gap 18.4 (5-19) 02/14/24 05:42 BUN 13 mg/dL (6-20) 02/14/24 05:42 Creatinine 0.6 mg/dL (0.5-0.9) 02/14/24 05:42 GFR Calculation 105.0 mL/min (90-130) 02/14/24 05:42 Glucose 131 mg/dL (65-115) H 02/14/24 05:42 Calculated Osmolality 286 mOsm/kg (285-295) 02/14/24 05:42 Lactic Acid 1.8 mmol/L (0.5-2.2) 02/14/24 05:42 Calcium 9.4 mg/dL (8.5-10.5) 02/14/24 05:42 Total Bilirubin 0.4 mg/dL (0.15-1.2) 02/14/24 05:42 AST 18 U/L (0-32) 02/14/24 05:42 ALT 23 U/L (0-33) 02/14/24 05:42 Alkaline Phosphatase 131 U/L (35-105) H 02/14/24 05:42 Total Protein 7.2 g/dL (6.6-8.7) 02/14/24 05:42 Albumin 4.3 g/dL (3.5-5.2) 02/14/24 05:42 Globulin 2.9 g/dL (1.3-4.6) 02/14/24 05:42 Urine Color Yellow (Yellow) 02/14/24 06:04 Urine Appearance Clear (CLEAR) 02/14/24 06:04 Urine pH 5 (5-7) 02/14/24 06:04 Ur Specific [place] 1.015 (1.005-1.030) 02/14/24 06:04 Urine Protein 1+ (Negative) H 02/14/24 06:04 Urine Glucose (UA) Norm (Normal) 02/14/24 06:04 Urine Ketones Negative (Negative) 02/14/24 06:04 Urine Blood 2+ (Negative) H 02/14/24 06:04 Urine Nitrate Negative (Negative) 02/14/24 06:04 Urine Bilirubin Neg (Negative) 02/14/24 06:04 Urine Urobilinogen Neg mg/dL (Negative) 02/14/24 06:04 Ur Leukocyte Esterase 1+ (Negative) H 02/14/24 06:04 Urine RBC 10-15 /hpf (0-2) H 02/14/24 06:04 Urine WBC 15-25 /hpf (0-5) H 02/14/24 06:04 Ur Squamous Epith Cells 10-15 /hpf (0-5) H 02/14/24 06:04 Amorphous Sediment Not Reportable 02/14/24 06:04 Urine Bacteria 1+ /hpf (NONE) H 02/14/24 06:04 All radiology interpretation(s) finalized by discharge Discharge Plan Discharge Patient Disposition: Home Clinical Impression: Lumbar radiculopathy, Cystitis Condition: Stable Prescriptions: New hydrocodone-acetaminophen 5-325 mg tablet 1 tab PO Q6H PRN (Reason: pain) Qty: 15 0RF prednisone 20 mg tablet 20 mg PO TID Qty: 15 0RF Rx Instructions: 1 p.o. 3 times daily x3 days, 1 p.o. twice daily x2 days, 1 p.o. daily x2 days Cipro 250 mg tablet 250 mg PO BID Qty: 14 0RF tizanidine 4 mg tablet 4 mg PO Q6H PRN (Reason: muscle spasticity) Qty: 20 0RF Rx Instructions: do not exceed 3 doses per 24 hrs diclofenac sodium 75 mg tablet,delayed release (DR/EC) 75 mg PO Q12H PRN (Reason: pain) Qty: 20 0RF Discharge Orders: Discharge ED (Routine); Ordered 02/14/24 Ordered By: Joshua Morrison Referrals: Delaney Spring DO [Primary Care Provider] - Patient Instructions: Opioid Safety, Pain Management Activity Restrictions/Additional Instructions: Thank you for choosing [facility] for your healthcare needs today. Please realize this is an emergency room and that we are providing you with a medical screening exam and this may not be complete and all inclusive of all the testing and or work up that you may need to determine your ailment or severity of your illness. It is very important that you follow up as instructed or that you return to the Emergency Department should you have concerns or if your condition changes or worsens in any way. You are seen today for back pain radiating into your leg. Suspect this is from a nerve impingement which Dr. Allan was evaluating for as an outpatient. You should continue this evaluation. CT done to evaluate for kidney stone did not show any kidney stones that were in the ureter where they would cause pain. You did have a bladder infection and a mild elevation of your white count. You were started on antibiotics and given a prescription for antibiotics at discharge. You are also given a prescription for hydrocodone for pain a steroid taper muscle relaxer and anti-inflammatory. Based on your evaluation today the majority your symptoms are likely coming from your back and nerve root irritation. If the culture of your urine shows resistance to the antibiotic given it will be adjusted once the culture is resulted. Sign Out Sign Out Data: Patient Sign Out occurred on 02/14/24 at 06:44. Patient's care was discussed, and care was transferred from Oh Velasquez MD to Joshua Morrison DO. Coding Level of Care Code ED Choke Setter for Chg Fwd Documented by User: Joshua Morrison DO 02/14/24 15:40 HPI - General Adult 2 General: Chief complaint: General Medical Stated complaint: Possibel Kideny Stone Time Seen by Provider: 02/14/24 05:52 PFS ED 2 PFSH: Medical History Elevated white blood cell count Muscle cramping Numbness of right hand Leg weakness, bilateral Bilateral renal stones Hydronephrosis S/P extracorporeal shock wave therapy Right distal ureteral calculus Surgical History S/P ureteral stent placement Hx of cholecystectomy Lap Family History Father Lung disease emphysema Mother , at age 62 Cancer Diabetes Social History Smoking and tobacco/nicotine status: current every day tobacco/nicotine user cigarettes Packs smoked per day: 0.5 Alcohol intake: current Alcohol intake frequency: holidays/special occasions only Substance/Drug Use: current Substance/Drug use frequency: few times a month Marital status: Current occupational status: retired Course 2 Vital Signs: Vital signs: Vital Signs Temperature 98.5 F 02/14/24 05:40 Pulse Rate 73 02/14/24 08:05 Respiratory Rate 18 02/14/24 08:05 Blood Pressure 128/93 02/14/24 08:05 Pulse Oximetry 94 02/14/24 08:05 Oxygen Delivery Me thod Room Air 02/14/24 07:17 MDM - General Adult Medical Decision Making Physical exam completed and documented, I will obtain a CBC, CMP, urinalysis and a CT scan renal stone protocol. I have provided IV fluid as well as Zofran for nausea and Toradol for pain control. I have discussed the patient's case with the on-coming physician <Dr. Morrison > and they have assumed care of the patient. We have discussed the current lab/radiographic results that have been resulted and the pending tests. Care assumed at change of shift CT does not show any ureterolithiasis. Discussing with patient which she is having more referred pain to her leg from a lumbar radiculopathy. She is already seen Dr. Allan's order nerve conduction study. Some improvement with medications given discharged home on steroid taper muscle relaxers hydrocodone diclofenac. Follow-up with Dr. Allan return if is further problems there is some leukocytosis patient mention she has had that frequently reviewing her chart her white count is indeed frequently elevated. Urine today did show mild cystitis for which we will treat her with antibiotics but I suspect that that is not the cause of her pain that the source of her pain which brought her to the emergency room is actually her lumbar radiculopathy. Medical Records I reviewed the patient's medical records. Lab Data I reviewed the patient's lab results. 02/14/24 05:42 02/14/24 05:42 Radiology Impressions Abdomen/Pelvis CT 02/14/24 05:47 IMPRESSION: 1. No acute subdiaphragmatic pathology. 2. Numerous chronic findings including bilateral nonobstructing renal calculi. Laboratory Results WBC 15.67 10^3/uL (3.29-11.43) H 02/14/24 05:42 RBC 5.40 10^6/uL (3.85-5.65) 02/14/24 05:42 Hgb 16.50 g/dL (11.27-16.99) 02/14/24 05:42 Hct 49.7 % (36-47) H 02/14/24 05:42 MCV 92.0 fl (85-98) 02/14/24 05:42 MCH 30.6 pg (27-33) 02/14/24 05:42 MCHC 33.2 g/dL (30-55) 02/14/24 05:42 RDW 12.8 % (12.1-15.1) 02/14/24 05:42 Plt Count 314 10^3/cmm (157-399) 02/14/24 05:42 MPV 9.7 fL (7.4-10.4) 02/14/24 05:42 Neut % (Auto) 58.4 % 02/14/24 05:42 Lymph % (Auto) 31.7 % 02/14/24 05:42 Price % (Auto) 7.7 % 02/14/24 05:42 Eos % (Auto) 1.5 % 02/14/24 05:42 Baso % (Auto) 0.4 % 02/14/24 05:42 Neut # (Auto) 9.15 10^3/uL (1.8-7.7) H 02/14/24 05:42 Lymph # (Auto) 5.0 10^3/uL (0.8-4.8) H 02/14/24 05:42 Price # (Auto) 1.2 10^3/uL (0.2-0.9) H 02/14/24 05:42 Eos # (Auto) 0.2 10^3/uL (0.0-0.8) 02/14/24 05:42 Baso # (Auto) 0.1 10^3/uL (0.0-0.1) 02/14/24 05:42 Nucleated RBC % (auto) 0 % 02/14/24 05:42 Nucleated RBCs # 0.0 /100WBC 02/14/24 05:42 Sodium 137 mmol/L (136-145) 02/14/24 05:42 Potassium 4.4 mmol/L (3.5-5.1) 02/14/24 05:42 Chloride 103 mmol/L (98-107) 02/14/24 05:42 Carbon Dioxide 20 mmol/L (22-29) L 02/14/24 05:42 Anion Gap 18.4 (5-19) 02/14/24 05:42 BUN 13 mg/dL (6-20) 02/14/24 05:42 Creatinine 0.6 mg/dL (0.5-0.9) 02/14/24 05:42 GFR Calculation 105.0 mL/min (90-130) 02/14/24 05:42 Glucose 131 mg/dL (65-115) H 02/14/24 05:42 Calculated Osmolality 286 mOsm/kg (285-295) 02/14/24 05:42 Lactic Acid 1.8 mmol/L (0.5-2.2) 02/14/24 05:42 Calcium 9.4 mg/dL (8.5-10.5) 02/14/24 05:42 Total Bilirubin 0.4 mg/dL (0.15-1.2) 02/14/24 05:42 AST 18 U/L (0-32) 02/14/24 05:42 ALT 23 U/L (0-33) 02/14/24 05:42 Alkaline Phosphatase 131 U/L (35-105) H 02/14/24 05:42 Total Protein 7.2 g/dL (6.6-8.7) 02/14/24 05:42 Albumin 4.3 g/dL (3.5-5.2) 02/14/24 05:42 Globulin 2.9 g/dL (1.3-4.6) 02/14/24 05:42 Urine Color Yellow (Yellow) 02/14/24 06:04 Urine Appearance Clear (CLEAR) 02/14/24 06:04 Urine pH 5 (5-7) 02/14/24 06:04 Ur Specific [place] 1.015 (1.005-1.030) 02/14/24 06:04 Urine Protein 1+ (Negative) H 02/14/24 06:04 Urine Glucose (UA) Norm (Normal) 02/14/24 06:04 Urine Ketones Negative (Negative) 02/14/24 06:04 Urine Blood 2+ (Negative) H 02/14/24 06:04 Urine Nitrate Negative (Negative) 02/14/24 06:04 Urine Bilirubin Neg (Negative) 02/14/24 06:04 Urine Urobilinogen Neg mg/dL (Negative) 02/14/24 06:04 Ur Leukocyte Esterase 1+ (Negative) H 02/14/24 06:04 Urine RBC 10-15 /hpf (0-2) H 02/14/24 06:04 Urine WBC 15-25 /hpf (0-5) H 02/14/24 06:04 Ur Squamous Epith Cells 10-15 /hpf (0-5) H 02/14/24 06:04 Amorphous Sediment Not Reportable 02/14/24 06:04 Urine Bacteria 1+ /hpf (NONE) H 02/14/24 06:04 Discharge Plan Discharge Patient Disposition: Home Clinical Impression: Lumbar radiculopathy, Cystitis Condition: Stable Prescriptions: New hydrocodone-acetaminophen 5-325 mg tablet 1 tab PO Q6H PRN (Reason: pain) Qty: 15 0RF prednisone 20 mg tablet 20 mg PO TID Qty: 15 0RF Rx Instructions: 1 p.o. 3 times daily x3 days, 1 p.o. twice daily x2 days, 1 p.o. daily x2 days Cipro 250 mg tablet 250 mg PO BID Qty: 14 0RF tizanidine 4 mg tablet 4 mg PO Q6H PRN (Reason: muscle spasticity) Qty: 20 0RF Rx Instructions: do not exceed 3 doses per 24 hrs diclofenac sodium 75 mg tablet,delayed release (DR/EC) 75 mg PO Q12H PRN (Reason: pain) Qty: 20 0RF Discharge Orders: Discharge ED (Routine); Ordered 02/14/24 Ordered By: Joshua Morrison Referrals: Delaney Spring DO [Primary Care Provider] - Patient Instructions: Opioid Safety, Pain Management Activity Restrictions/Additional Instructions: Thank you for choosing [facility] for your healthcare needs today. Please realize this is an emergency room and that we are providing you with a medical screening exam and this may not be complete and all inclusive of all the testing and or work up that you may need to determine your ailment or severity of your illness. It is very important that you follow up as instructed or that you return to the Emergency Department should you have concerns or if your condition changes or worsens in any way. You are seen today for back pain radiating into your leg. Suspect this is from a nerve impingement which Dr. Allan was evaluating for as an outpatient. You should continue this evaluation. CT done to evaluate for kidney stone did not show any kidney stones that were in the ureter where they would cause pain. You did have a bladder infection and a mild elevation of your white count. You were started on antibiotics and given a prescription for antibiotics at discharge. You are also given a prescription for hydrocodone for pain a steroid taper muscle relaxer and anti-inflammatory. Based on your evaluation today the majority your symptoms are likely coming from your back and nerve root irritation. If the culture of your urine shows resistance to the antibiotic given it will be adjusted once the culture is resulted. Sign Out Sign Out Data: Patient Sign Out occurred on 02/14/24 at 06:44. Patient's care was discussed, and care was transferred from Oh Velasquez MD to Joshua Morrison DO. Coding Level of Care Code ED Choke Setter for [place]
[2024-02-14 05:53] LABS: Basophils # 0.1 10^3/uL (0.0-0.1); Basophils % 0.4 %; Eosinophils # 0.2 10^3/uL (0.0-0.8); Eosinophils % 1.5 %; Hematocrit 49.7 % (36-47); Lymphocytes % 31.7 %; Mean Corpuscular HGB Conc 33.2 g/dL (30-55); Mean Corpuscular Hemoglobin 30.6 pg (27-33); Mean Platelet Volume 9.7 fL (7.4-10.4); Monocytes # 1.2 10^3/uL (0.2-0.9); Monocytes % 7.7 %; Neutrophils # 9.15 10^3/uL (1.8-7.7); Neutrophils % 58.4 %; Nucleated Red Blood Cells % 0 %; Platelet Count 314 10^3/cmm (157-399); Red Cell Distribution Width 12.8 % (12.1-15.1); White Blood Count 15.67 10^3/uL (3.29-11.43)
[2024-02-14] MEDS: ketorolac 30 mg/mL INJ IVP (05:54)
[2024-02-14] MEDS: sodium chloride 0.9% 1,000 ML 999 ML IV (06:09)
[2024-02-14] MEDS: ondansetron 2 mg/ML SDV 2 mL 4 MG IVP (06:10)
[2024-02-14 06:12] VITALS: BP 106/66; PULSE 92; RESP 16; O2SAT 96
[2024-02-14 06:15] LABS: Alanine Aminotransferase 23 U/L (0-33); Albumin Level 4.3 g/dL (3.5-5.2); Alkaline Phosphatase 131 U/L (35-105); Anion Gap 18.4 (5-19); Aspartate Amino Transferase 18 U/L (0-32); Blood Urea Nitrogen 13 mg/dL (6-20); Calcium 9.4 mg/dL (8.5-10.5); Carbon Dioxide 20 mmol/L (22-29); Chloride 103 mmol/L (98-107); Creatinine Clr Calc Pharmacy 123.6853; Globulin 2.9 g/dL (1.3-4.6); Glucose 131 mg/dL (65-115); Osmolality Calculated 286 mOsm/kg (285-295); Potassium 4.4 mmol/L (3.5-5.1); Sodium 137 mmol/L (136-145); Total Bilirubin 0.4 mg/dL (0.15-1.2); Total Protein 7.2 g/dL (6.6-8.7)
[2024-02-14 06:22] LABS: Add Urine Microscopic? YES; Bilirubin Urine Neg (Negative); Blood Urine 2+ (Negative); Glucose Urine UA Norm (Normal); Ketones Urine Negative (Negative); Leukocyte Esterase Urine 1+ (Negative); Nitrate Urine Negative (Negative); Protein Urine 1+ (Negative); Specific Gravity, Urine 1.015 (1.005-1.030); Urine Appearance Clear (CLEAR); Urine Color Yellow (Yellow); Urobilinogen Urine Neg (Negative); pH Urine 5 (5-7)
[2024-02-14 06:23] LABS: Add Urine Culture? No; Bacteria Urine 1+ /hpf; WBC Urine 15-25 /hpf (0-5)
[2024-02-14 06:54] LABS: Slide Review Slide Review Perform
[2024-02-14] MEDS: cefTRIAXone 1,000 MG in sodium chloride 0.9% (plus) 50 ML 100 MG IV (07:14)
[2024-02-14] MEDS: dexamethasone 10 mg/mL INJ IM (07:14)
[2024-02-14 07:15] LABS: Lactic Sepsis W/Reflex 1.8 mmol/L (0.5-2.2)
[2024-02-14 07:17] VITALS: BP 128/93; PULSE 73; RESP 18; O2SAT 94
[2024-02-14] MEDS: orphenadrine 30 mg/mL Inj 2 mL 60 MG IM (07:27)
[2024-02-14 08:05] VITALS: BP 128/93; PULSE 73; RESP 18; O2SAT 94
== END 2024-02-14 08:06 | disposition home or self-care (01) ==
PROVIDERS: Internal Medicine; Emergency Provider Family Medicine; PCP Family Medicine
DX: M54.16 Radiculopathy, lumbar region (principal); N30.90 Cystitis, unspecified without hematuria; F17.210 Nicotine dependence, cigarettes, uncomplicated
CPT/HCPCS: 36415; 74176; 80053; 81001; 83605; 85025; 87040; 96361; 96372; 96374; 96375; 99285; J0696; J1100; J1885; J2360; J2405; J7030

== ENCOUNTER 2024-02-21 16:50 | Emergency (ER) | payer BC, MEDICAID, SELFPAY ==
[2024-02-21 16:59] VITALS: BP 127/86; PULSE 86; RESP 16; TEMP 36.3; O2SAT 96; BMI 33.3
[2024-02-21 17:37] LABS: Basophils # 0.1 10^3/uL (0.0-0.1); Basophils % 0.5 %; Eosinophils # 0.3 10^3/uL (0.0-0.8); Eosinophils % 1.1 %; Hematocrit 48.3 % (36-47); Lymphocytes # 5.7 10^3/uL (0.8-4.8); Lymphocytes % 23.5 %; Mean Corpuscular HGB Conc 32.7 g/dL (30-55); Mean Corpuscular Hemoglobin 30.3 pg (27-33); Mean Corpuscular Volume 92.5 fl (85-98); Mean Platelet Volume 9.6 fL (7.4-10.4); Monocytes # 2.1 10^3/uL (0.2-0.9); Monocytes % 8.7 %; Neutrophils # 15.98 10^3/uL (1.8-7.7); Neutrophils % 65.5 %; Nucleated Red Blood Cells % 0 %; Platelet Count 315 10^3/cmm (157-399); Red Blood Count 5.22 10^6/uL (3.85-5.65); White Blood Count 24.39 10^3/uL (3.29-11.43)
[2024-02-21 17:53] LABS: Alanine Aminotransferase 28 U/L (0-33); Albumin Level 4.2 g/dL (3.5-5.2); Alkaline Phosphatase 119 U/L (35-105); Aspartate Amino Transferase 21 U/L (0-32); Blood Urea Nitrogen 18 mg/dL (6-20); Calcium 9.3 mg/dL (8.5-10.5); Carbon Dioxide 20 mmol/L (22-29); Chloride 101 mmol/L (98-107); Creatinine Clr Calc Pharmacy 112.2089; Globulin 2.5 g/dL (1.3-4.6); Glomerular Filtration Rate 87.9 mL/min (90-130); Glucose 106 mg/dL (65-115); Lipase 23 U/L (13-60); Osmolality Calculated 284 mOsm/kg (285-295); Sodium 136 mmol/L (136-145); Total Bilirubin 0.2 mg/dL (0.15-1.2); Total Protein 6.7 g/dL (6.6-8.7)
[2024-02-21 18:01] VITALS: PULSE 81; O2SAT 96
[2024-02-21 18:01] LABS: Anion Gap 18.7 (5-19); Potassium 3.7 mmol/L (3.5-5.1)
[2024-02-21 18:22] LABS: Slide Review Slide Review Perform
--- NOTE | 2024-02-21 18:32 | W.ED.ABDPA2 ---
Documented by User: [email or web address] Andrews 02/21/24 19:09 HPI - Abdominal Pain General: Chief Complaint: Abdominal Pain Stated Complaint: abd pain Time Seen by Provider: 02/21/24 17:27 Source: patient Mode of arrival: ambulatory Limitations: no limitations History of Present Illness: Patient is a 53-year-old female presenting to the emergency department complaining of left flank pain onset today. Patient notes extensive history of kidney stones and states that this pain feels similar. She has had some associated nausea and vomiting, and states she has not urinated since moving. She reports that her kidney stones have gotten so severe that she has had multiple lithotripsies performed. She is unsure as to why she has so many kidney stones as her last stone biopsy was nonconclusive. Currently she states that her pain is improving, as she has taken a hydrocodone that she had at home. She is also taking Flomax for her symptoms. No fevers or other symptoms to report at this time. She did note that the pain was beginning to radiate down into the left lower abdomen/groin region. MD elicited complaint: flank pain Pertinent past history: kidney stones Onset (ago): hour(s) Pain Consistency: constant Location: L flank Severity: severe Pain scale (0-10): 10 Quality: sharp Radiation: LLQ and suprapubic Associated Symptoms: Reports nausea and vomiting; Denies bloating, change in stool character, chills, constipation, diarrhea, dysuria, fever(s) and hematochezia Review of Systems General: Reports: 10 or more systems reviewed and unremarkable except in HPI and below Const: Denies: fever(s), chills, change in appetite, change in weight or diaphoresis ENMT: Denies: throat pain or hoarseness Card: Denies: chest pain, palpitations or lightheadedness Resp: Denies: dyspnea, productive cough or wheezing GI: Reports: abdominal pain, nausea and vomiting; Denies: diarrhea, constipation, bloating, change in stool character or hematochezia : Reports: flank pain, difficulty voiding and oliguria; Denies: dysuria, urinary frequency or urinary urgency Musc: Denies: neck pain or back pain Skin/Breast: Denies: rash or new lesions Neuro: Denies: headache(s) or dizziness PFS ED PFSH: Medical History Elevated white blood cell count Muscle cramping Numbness of right hand Leg weakness, bilateral Bilateral renal stones Hydronephrosis S/P extracorporeal shock wave therapy Right distal ureteral calculus Surgical History S/P ureteral stent placement Hx of cholecystectomy Lap Family History Father Lung disease emphysema Mother , at age 62 Cancer Diabetes Social History Smoking and tobacco/nicotine status: current every day tobacco/nicotine user cigarettes Packs smoked per day: 0.5 Alcohol intake: current Alcohol intake frequency: holidays/special occasions only Substance/Drug Use: current Substance/Drug use frequency: few times a month Marital status: Current occupational status: retired Physical Exam Const: COMMON NORMALS: average body habitus, patient oriented x3, no limitations, healthy appearing, alert and well nourished GENERAL APPEARANCE: cooperative and in distress (Pacing around the room in pain) ORIENTATION/CONSCIOUSNESS: Yes awake HENMT: COMMON NORMALS: normocephalic, atraumatic, hearing grossly normal bilaterally, external ears normal, Normal external nose present, Normal nasal mucous membranes and turbinates present and moist oral mucous membranes HEAD & SCALP: normocephalic and atraumatic NOSE: Normal external nose present and Normal nasal mucous membranes and turbinates present EXTERNAL EAR: Yes external ears normal Eye: COMMON NORMALS: Equal, round and reactive pupils present, EOMs intact bilaterally, conjunctivae normal and normal visual ray by confrontation CONJUNCTIVA: Yes conjunctivae normal PUPIL: Yes Equal, round and reactive pupils present Neck/C-Spine: COMMON NORMALS: full ROM, supple, no meningeal signs and no JVD Resp: COMMON NORMALS: normal respiratory effort, No retractions, No use of accessory muscles and clear to auscultation bilaterally AUSCULTATION: clear to auscultation bilaterally, no crackles, no rales, no rhonchi and no wheezes Cardio: COMMON NORMALS: no JVD, regular rate, regular rhythm, S1 normal heart sound present, S2 normal heart sound present, No gallops present (Cardio), No clicks present (Cardio), No murmurs present (Cardio), No rub (Cardio) and Peripheral pulses 2+ throughout RATE: regular rate RHYTHM: regular rhythm HEART SOUNDS: S1 normal heart sound present and S2 normal heart sound present PERIPHERAL PULSES: Peripheral pulses 2+ throughout GI: COMMON NORMALS: Normal to inspection, nondistended, normoactive bowel sounds present, Soft to palpation, No hepatosplenomegaly present and no masses AUSCULTATION: Yes normoactive bowel sounds PALPATION: Yes Soft to palpation, Yes Tenderness to palpation present (GI) Details: LLQ, No Guarding due to palpation present (GI), No Rigid due to palpation and Yes No hepatosplenomegaly present RECTAL EXAM: deferred : BLADDER/KIDNEY EXAM: Yes CVA tenderness on the left Back/Pelvis: GENERAL BACK: Yes CVA tenderness Extremity: COMMON NORMALS: normal to inspection and full ROM Neuro: COMMON NORMALS: patient oriented x3, moves all extremities, no focal motor deficits and no sensory deficits noted SENSORIUM/ORIENTATION: Yes alert MENINGEAL SIGNS: Yes no meningeal signs Psych: COMMON NORMALS: mental status grossly normal, cooperative and speech normal SPEECH: Yes normal speech Skin: COMMON NORMALS: no rashes or lesions noted GENERAL SKIN EXAM: no rashes or lesions noted Course Vital Signs: Vital signs: Vital Signs Temperature 97.3 F L 02/21/24 16:59 Pulse Rate 81 02/21/24 18:01 Respiratory Rate 16 02/21/24 16:59 Blood Pressure 127/86 02/21/24 16:59 Pulse Oximetry 96 02/21/24 18:01 MDM - Abdominal Pain Medical Decision Making This patient seen and evaluated due to left flank pain onset today. Patient notes significant history of kidney stones requiring multiple lithotripsy surgeries. Patient notes she has not urinated since noon. On arrival patient was complaining of 10/10 pain, however was improving after taking hydrocodone and Flomax. Examination showed some reproducible left flank and left lower abdominal pain, with positive CVA testing on the left side. Patient was also pacing around the room and pain. Just prior to CTs arrival to take her for imaging, and while giving a urine sample, patient notes that she definitively passed a stone in the toilet. She did not flush and asked that I visualize it, to which I agree that there is visible sedimentation noted. She notes immediate relief of all of her pain, and denies a CT at this time. Upon evaluation of her labs, she does have an elevated white count at 24,000, patient does note that she has a history of elevated white count. Upon patient record review she was here last week and diagnosed with a UTI for which she just finished Cipro for. I discussed with the patient that due to her elevated white count, I believe that continuing the antibiotic would be appropriate. However I do believe as well that her white count could be elevated due to the recent passage of kidney stone as well as attributed to her chronically elevated white count. For this reason, I do not feel it is necessary for imaging at this time. I did have a thorough conversation with the patient in regards to return precautions and she will follow-up with her primary care in the next few days for reevaluation. 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 Prior to discharge, patient is still pain-free and no longer having nausea, as she is sitting comfortably on the exam bed. Patient agrees with discharge home. Lab Data 02/21/24 17:17 02/21/24 17:17 Labs/Radiology: Laboratory Results WBC 24.39 10^3/uL (3.29-11.43) H 02/21/24 17:17 RBC 5.22 10^6/uL (3.85-5.65) 02/21/24 17:17 Hgb 15.80 g/dL (11.27-16.99) 02/21/24 17:17 Hct 48.3 % (36-47) H 02/21/24 17:17 MCV 92.5 fl (85-98) 02/21/24 17:17 MCH 30.3 pg (27-33) 02/21/24 17:17 MCHC 32.7 g/dL (30-55) 02/21/24 17:17 RDW 13.0 % (12.1-15.1) 02/21/24 17:17 Plt Count 315 10^3/cmm (157-399) 02/21/24 17:17 MPV 9.6 fL (7.4-10.4) 02/21/24 17:17 Neut % (Auto) 65.5 % 02/21/24 17:17 Lymph % (Auto) 23.5 % 02/21/24 17:17 [place] % (Auto) 8.7 % 02/21/24 17:17 Eos % (Auto) 1.1 % 02/21/24 17:17 Baso % (Auto) 0.5 % 02/21/24 17:17 Neut # (Auto) 15.98 10^3/uL (1.8-7.7) H 02/21/24 17:17 Lymph # (Auto) 5.7 10^3/uL (0.8-4.8) H 02/21/24 17:17 [place] # (Auto) 2.1 10^3/uL (0.2-0.9) H 02/21/24 17:17 Eos # (Auto) 0.3 10^3/uL (0.0-0.8) 02/21/24 17:17 Baso # (Auto) 0.1 10^3/uL (0.0-0.1) 02/21/24 17:17 Nucleated RBC % (auto) 0 % 02/21/24 17:17 Nucleated RBCs # 0.0 /100WBC 02/21/24 17:17 Sodium 136 mmol/L (136-145) 02/21/24 17:17 Potassium 3.7 mmol/L (3.5-5.1) 02/21/24 17:17 Chloride 101 mmol/L (98-107) 02/21/24 17:17 Carbon Dioxide 20 mmol/L (22-29) L 02/21/24 17:17 Anion Gap 18.7 (5-19) 02/21/24 17:17 BUN 18 mg/dL (6-20) 02/21/24 17:17 Creatinine 0.7 mg/dL (0.5-0.9) 02/21/24 17:17 GFR Calculation 87.9 mL/min (90-130) L 02/21/24 17:17 Glucose 106 mg/dL (65-115) 02/21/24 17:17 Calculated Osmolality 284 mOsm/kg (285-295) L 02/21/24 17:17 Calcium 9.3 mg/dL (8.5-10.5) 02/21/24 17:17 Total Bilirubin 0.2 mg/dL (0.15-1.2) 02/21/24 17:17 AST 21 U/L (0-32) 02/21/24 17:17 ALT 28 U/L (0-33) 02/21/24 17:17 Alkaline Phosphatase 119 U/L (35-105) H 02/21/24 17:17 Total Protein 6.7 g/dL (6.6-8.7) 02/21/24 17:17 Albumin 4.2 g/dL (3.5-5.2) 02/21/24 17:17 Globulin 2.5 g/dL (1.3-4.6) 02/21/24 17:17 Lipase 23 U/L (13-60) 02/21/24 17:17 Urine Color Yellow (Yellow) 02/21/24 18:09 Urine Appearance Clear (CLEAR) 02/21/24 18:09 Urine pH 6 (5-7) 02/21/24 18:09 Ur Specific Susan 1.015 (1.005-1.030) 02/21/24 18:09 Urine Protein Neg (Negative) 02/21/24 18:09 Urine Glucose (UA) Norm (Normal) 02/21/24 18:09 Urine Ketones Negative (Negative) 02/21/24 18:09 Urine Blood 3+ (Negative) H 02/21/24 18:09 Urine Nitrate Negative (Negative) 02/21/24 18:09 Urine Bilirubin Neg (Negative) 02/21/24 18:09 Urine Urobilinogen Norm mg/dL (Negative) 02/21/24 18:09 Ur Leukocyte Esterase Negative (Negative) 02/21/24 18:09 Urine RBC 0-4 /hpf (0-2) H 02/21/24 18:09 Urine WBC 0-4 /hpf (0-5) H 02/21/24 18:09 Ur Squamous Epith Cells 0-4 /hpf (0-5) H 02/21/24 18:09 Calcium Oxalate Crystal Rare /hpf 02/21/24 18:09 Amorphous Sediment Not Reportable 02/21/24 18:09 Urine Bacteria Trace /hpf (NONE) 02/21/24 18:09 No radiology studies performed this visit Discharge Plan Discharge Patient Disposition: Home Clinical Impression: Ureterolithiasis Condition: Stable Prescriptions: New ciprofloxacin HCl 250 mg tablet 250 mg PO BID 7 Days Qty: 14 0RF No Action hydrocodone-acetaminophen 5-325 mg tablet 1 tab PO Q6H PRN (Reason: pain) Qty: 15 0RF prednisone 20 mg tablet 20 mg PO TID Qty: 15 0RF Rx Instructions: 1 p.o. 3 times daily x3 days, 1 p.o. twice daily x2 days, 1 p.o. daily x2 days Cipro 250 mg tablet 250 mg PO BID Qty: 14 0RF tizanidine 4 mg tablet 4 mg PO Q6H PRN (Reason: muscle spasticity) Qty: 20 0RF Rx Instructions: do not exceed 3 doses per 24 hrs diclofenac sodium 75 mg tablet,delayed release (DR/EC) 75 mg PO Q12H PRN (Reason: pain) Qty: 20 0RF Discharge Orders: Discharge ED (Routine); Ordered 02/21/24 Ordered By: Brent Reynolds Referrals: Delaney Spring DO [Primary Care Provider] - Discharge Diet: Usual diet Discharge Activity: Increase activity as tolerated Patient Instructions: Kidney Stones (ED) Activity Restrictions/Additional Instructions: Cipro as prescribed. Plenty of fluids. Follow-up with your primary care in the next few days. Return with any new or concerning symptoms. Coding Level of Care Code ED Lumber Sorter Machine for Chg Fwd Documented by User: Joshua Morrison DO 02/24/24 08:51 HPI - Abdominal Pain General: Chief Complaint: Abdominal Pain Stated Complaint: abd pain Time Seen by Provider: 02/21/24 17:27 PFS ED PFSH: Medical History Elevated white blood cell count Muscle cramping Numbness of right hand Leg weakness, bilateral Bilateral renal stones Hydronephrosis S/P extracorporeal shock wave therapy Right distal ureteral calculus Surgical History S/P ureteral stent placement Hx of cholecystectomy Lap Family History Father Lung disease emphysema Mother , at age 62 Cancer Diabetes Social History Smoking and tobacco/nicotine status: current every day tobacco/nicotine user cigarettes Packs smoked per day: 0.5 Alcohol intake: current Alcohol intake frequency: holidays/special occasions only Substance/Drug Use: current Substance/Drug use frequency: few times a month Marital status: Current occupational status: retired Course Vital Signs: Vital signs: Vital Signs Temperature 97.3 F L 02/21/24 16:59 Pulse Rate 81 02/21/24 18:01 Respiratory Rate 16 02/21/24 16:59 Blood Pressure 127/86 02/21/24 16:59 Pulse Oximetry 96 02/21/24 18:01 MDM - Abdominal Pain Medical Decision Making This patient seen and evaluated due to left flank pain onset today. Patient notes significant history of kidney stones requiring multiple lithotripsy surgeries. Patient notes she has not urinated since noon. On arrival patient was complaining of 10/10 pain, however was improving after taking hydrocodone and Flomax. Examination showed some reproducible left flank and left lower abdominal pain, with positive CVA testing on the left side. Patient was also pacing around the room and pain. Just prior to CTs arrival to take her for imaging, and while giving a urine sample, patient notes that she definitively passed a stone in the toilet. She did not flush and asked that I visualize it, to which I agree that there is visible sedimentation noted. She notes immediate relief of all of her pain, and denies a CT at this time. Upon evaluation of her labs, she does have an elevated white count at 24,000, patient does note that she has a history of elevated white count. Upon patient record review she was here last week and diagnosed with a UTI for which she just finished Cipro for. I discussed with the patient that due to her elevated white count, I believe that continuing the antibiotic would be appropriate. However I do believe as well that her white count could be elevated due to the recent passage of kidney stone as well as attributed to her chronically elevated white count. For this reason, I do not feel it is necessary for imaging at this time. I did have a thorough conversation with the patient in regards to return precautions and she will follow-up with her primary care in the next few days for reevaluation. 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 Prior to discharge, patient is still pain-free and no longer having nausea, as she is sitting comfortably on the exam bed. Patient agrees with discharge home. Chart reviewed Lab Data 02/21/24 17:17 02/21/24 17:17 Labs/Radiology: Laboratory Results WBC 24.39 10^3/uL (3.29-11.43) H 02/21/24 17:17 RBC 5.22 10^6/uL (3.85-5.65) 02/21/24 17:17 Hgb 15.80 g/dL (11.27-16.99) 02/21/24 17:17 Hct 48.3 % (36-47) H 02/21/24 17:17 MCV 92.5 fl (85-98) 02/21/24 17:17 MCH 30.3 pg (27-33) 02/21/24 17:17 MCHC 32.7 g/dL (30-55) 02/21/24 17:17 RDW 13.0 % (12.1-15.1) 02/21/24 17:17 Plt Count 315 10^3/cmm (157-399) 02/21/24 17:17 MPV 9.6 fL (7.4-10.4) 02/21/24 17:17 Neut % (Auto) 65.5 % 02/21/24 17:17 Lymph % (Auto) 23.5 % 02/21/24 17:17 [place] % (Auto) 8.7 % 02/21/24 17:17 Eos % (Auto) 1.1 % 02/21/24 17:17 Baso % (Auto) 0.5 % 02/21/24 17:17 Neut # (Auto) 15.98 10^3/uL (1.8-7.7) H 02/21/24 17:17 Lymph # (Auto) 5.7 10^3/uL (0.8-4.8) H 02/21/24 17:17 [place] # (Auto) 2.1 10^3/uL (0.2-0.9) H 02/21/24 17:17 Eos # (Auto) 0.3 10^3/uL (0.0-0.8) 02/21/24 17:17 Baso # (Auto) 0.1 10^3/uL (0.0-0.1) 02/21/24 17:17 Nucleated RBC % (auto) 0 % 02/21/24 17:17 Nucleated RBCs # 0.0 /100WBC 02/21/24 17:17 Sodium 136 mmol/L (136-145) 02/21/24 17:17 Potassium 3.7 mmol/L (3.5-5.1) 02/21/24 17:17 Chloride 101 mmol/L (98-107) 02/21/24 17:17 Carbon Dioxide 20 mmol/L (22-29) L 02/21/24 17:17 Anion Gap 18.7 (5-19) 02/21/24 17:17 BUN 18 mg/dL (6-20) 02/21/24 17:17 Creatinine 0.7 mg/dL (0.5-0.9) 02/21/24 17:17 GFR Calculation 87.9 mL/min (90-130) L 02/21/24 17:17 Glucose 106 mg/dL (65-115) 02/21/24 17:17 Calculated Osmolality 284 mOsm/kg (285-295) L 02/21/24 17:17 Calcium 9.3 mg/dL (8.5-10.5) 02/21/24 17:17 Total Bilirubin 0.2 mg/dL (0.15-1.2) 02/21/24 17:17 AST 21 U/L (0-32) 02/21/24 17:17 ALT 28 U/L (0-33) 02/21/24 17:17 Alkaline Phosphatase 119 U/L (35-105) H 02/21/24 17:17 Total Protein 6.7 g/dL (6.6-8.7) 02/21/24 17:17 Albumin 4.2 g/dL (3.5-5.2) 02/21/24 17:17 Globulin 2.5 g/dL (1.3-4.6) 02/21/24 17:17 Lipase 23 U/L (13-60) 02/21/24 17:17 Urine Color Yellow (Yellow) 02/21/24 18:09 Urine Appearance Clear (CLEAR) 02/21/24 18:09 Urine pH 6 (5-7) 02/21/24 18:09 Ur Specific Susan 1.015 (1.005-1.030) 02/21/24 18:09 Urine Protein Neg (Negative) 02/21/24 18:09 Urine Glucose (UA) Norm (Normal) 02/21/24 18:09 Urine Ketones Negative (Negative) 02/21/24 18:09 Urine Blood 3+ (Negative) H 02/21/24 18:09 Urine Nitrate Negative (Negative) 02/21/24 18:09 Urine Bilirubin Neg (Negative) 02/21/24 18:09 Urine Urobilinogen Norm mg/dL (Negative) 02/21/24 18:09 Ur Leukocyte Esterase Negative (Negative) 02/21/24 18:09 Urine RBC 0-4 /hpf (0-2) H 02/21/24 18:09 Urine WBC 0-4 /hpf (0-5) H 02/21/24 18:09 Ur Squamous Epith Cells 0-4 /hpf (0-5) H 02/21/24 18:09 Calcium Oxalate Crystal Rare /hpf 02/21/24 18:09 Amorphous Sediment Not Reportable 02/21/24 18:09 Urine Bacteria Trace /hpf (NONE) 02/21/24 18:09 Discharge Plan Discharge Patient Disposition: Home Clinical Impression: Ureterolithiasis Condition: Stable Prescriptions: New ciprofloxacin HCl 250 mg tablet 250 mg PO BID 7 Days Qty: 14 0RF No Action hydrocodone-acetaminophen 5-325 mg tablet 1 tab PO Q6H PRN (Reason: pain) Qty: 15 0RF prednisone 20 mg tablet 20 mg PO TID Qty: 15 0RF Rx Instructions: 1 p.o. 3 times daily x3 days, 1 p.o. twice daily x2 days, 1 p.o. daily x2 days Cipro 250 mg tablet 250 mg PO BID Qty: 14 0RF tizanidine 4 mg tablet 4 mg PO Q6H PRN (Reason: muscle spasticity) Qty: 20 0RF Rx Instructions: do not exceed 3 doses per 24 hrs diclofenac sodium 75 mg tablet,delayed release (DR/EC) 75 mg PO Q12H PRN (Reason: pain) Qty: 20 0RF Discharge Orders: Discharge ED (Routine); Ordered 02/21/24 Ordered By: Brent Reynolds Referrals: Delaney Spring DO [Primary Care Provider] - Discharge Diet: Usual diet Discharge Activity: Increase activity as tolerated Patient Instructions: Kidney Stones (ED) Activity Restrictions/Additional Instructions: Cipro as prescribed. Plenty of fluids. Follow-up with your primary care in the next few days. Return with any new or concerning symptoms. Coding Level of Care Code ED Lumber Sorter Machine for Catalina De La Vega
[2024-02-21 18:43] LABS: Add Urine Microscopic? YES; Bilirubin Urine Neg (Negative); Blood Urine 3+ (Negative); Glucose Urine UA Norm (Normal); Ketones Urine Negative (Negative); Leukocyte Esterase Urine Negative (Negative); Nitrate Urine Negative (Negative); Protein Urine Neg (Negative); Specific Gravity, Urine 1.015 (1.005-1.030); Urine Appearance Clear (CLEAR); Urine Color Yellow (Yellow); Urobilinogen Urine Norm (Negative); pH Urine 6 (5-7)
[2024-02-21] MEDS: ciprofloxacin 500 mg Tablet 250 MG PO (19:08)
[2024-02-21 19:11] LABS: Bacteria Urine TRACE /hpf; Calcium Oxalate Crystals Urine RARE /hpf; RBC Urine 0-4 /hpf (0-2); Squamous Epithelial Cell Urine 0-4 /hpf (0-5); WBC Urine 0-4 /hpf (0-5)
[2024-02-21 19:12] LABS: Add Urine Culture? No
== END 2024-02-21 19:11 | disposition home or self-care (01) ==
PROVIDERS: Emergency Medicine; Emergency Provider Physician Assistant; PCP Family Medicine
DX: N20.1 Calculus of ureter (principal); F17.210 Nicotine dependence, cigarettes, uncomplicated; Z87.442 Personal history of urinary calculi
CPT/HCPCS: 36415; 80053; 81001; 83690; 85025; 99283

== ENCOUNTER 2024-03-08 12:53 | Outpatient (CLI) | payer BC, MEDICAID, SELFPAY ==
--- NOTE | 2024-03-08 13:00 | MR_ITS ---
WS: [id number] MRI LUMBAR SPINE NONCONTRAST HISTORY: M54.9 - Dorsalgia, unspecified COMPARISON: None available. TECHNIQUE: Sagittal and axial multisequence imaging is submitted. Normal lumbar alignment with no compression fractures or marrow edema. Moderate disc base narrowing and desiccation at L5-S1. Conus terminates normally at L1-2 disc level. L1-L2: Normal. L2-L3: Mild facet joint arthritis. L3-L4: Very mild disc bulging. Mild ligamentum flavum and facet arthritis. No stenosis. L4-L5: Mild annular disc bulging with minimal encroachment upon the subarticular recesses. Mild bilat eral foraminal stenosis, RIGHT greater than LEFT. There is mild contact on the exiting RIGHT L4 nerve root by disc bulging. L5-S1: Diffuse annular disc bulging with a LEFT paracentral disc protrusion. Annular fissures within the disc. Osteophytic ridging and facet arthritis. There is mild disc and osteophyte contact on the S 1 nerve roots, LEFT greater than RIGHT. Mild bilateral foraminal stenosis. IMPRESSION: 1. Annular disc bulging with a LEFT paracentral disc protrusion at L5-S1. Disc contacts the LEFT S1 nerve root. Additional mild bilateral foraminal stenosis by osteophyte and disc disease. 2. L4-5: Mild bilateral foraminal stenosis and subarticular recess encroachment by disc and osteophy te disease. Slightly greater RIGHT foraminal stenosis. 3. No compression fractures or marrow edema.
== END 2024-03-08 12:54 | disposition home or self-care (01) ==
LOC: RAD 12:53
PROVIDERS: PCP Family Medicine; Visit Provider Psychiatry & Neurology Neurology
DX: M51.27 Other intervertebral disc displacement, lumbosacral region (principal); M48.061 Spinal stenosis, lumbar region without neurogenic claudication
CPT/HCPCS: 72148

== ENCOUNTER → 2024-03-28 13:17 | Outpatient (BNVA) | payer BC, MEDICAID, SELFPAY | PROVIDERS: PCP Family Medicine; Referring Provider Psychiatry & Neurology Neurology; Visit Provider Orthopaedic Surgery | DX: M54.9 Dorsalgia, unspecified (principal) | CPT/HCPCS: 72110 ==

== ENCOUNTER 2024-04-18 15:35 | Outpatient (CLI) | payer BC, MEDICAID, SELFPAY ==
[2024-04-18 16:47] LABS: Calcium 9.2 mg/dL (8.5-10.5)
[2024-04-18 16:55] LABS: Parathyroid Hormone 50.4 pg/mL (15-65)
[2024-04-18 17:09] LABS: Creatinine Urine, Random 272 mg/dL (28-217); Microalbumin Random Urine 17 ug/dL (0-20)
[2024-04-18 17:10] LABS: Microalbum Creatinine Ratio Ur 63 mg/dL (0-20)
[2024-04-18 17:11] LABS: Estmated Average Glucose 137; Hemoglobin A1C 6.4 % (4.0-6.0)
[2024-04-18 17:49] LABS: Alanine Aminotransferase 27 U/L (0-33); Albumin Level 4.1 g/dL (3.5-5.2); Alkaline Phosphatase 132 U/L (35-105); Aspartate Amino Transferase 18 U/L (0-32); Blood Urea Nitrogen 21 mg/dL (6-20); Calcium 9.2 mg/dL (8.5-10.5); Carbon Dioxide 20 mmol/L (22-29); Chloride 105 mmol/L (98-107); Chol HDL Ratio 7.17 mg/dL (0.0-4.40); Cholesterol 251 mg/dL (0-200); Globulin 2.7 g/dL (1.3-4.6); Glomerular Filtration Rate 104.6 mL/min (90-130); Glucose 170 mg/dL (65-115); HDL Cholesterol 35 mg/dL (60-100); Osmolality Calculated 293 mOsm/kg (285-295); Sodium 138 mmol/L (136-145); Total Bilirubin 0.2 mg/dL (0.15-1.2); Total Protein 6.8 g/dL (6.6-8.7); Triglycerides 477 mg/dL (0-150)
[2024-04-18 17:55] LABS: Free T4 Free Thyroxine 1.29 ng/dL (0.82-1.77)
[2024-04-18 18:10] LABS: LDL Cholesterol Direct 171 mg/dL (0-100)
[2024-04-18 18:26] LABS: 25 Hydroxy Vitamin D 43 ng/mL (30-100)
== END 2024-04-18 15:36 | disposition home or self-care (01) ==
LOC: LAB 15:36
PROVIDERS: PCP Family Medicine; Visit Provider Internal Medicine
DX: M81.0 Age-related osteoporosis without current pathological fracture (principal); E21.3 Hyperparathyroidism, unspecified; R79.89 Other specified abnormal findings of blood chemistry
CPT/HCPCS: 36415; 80053; 80061; 82044; 82306; 82310; 83036; 83721; 83970; 84439

== ENCOUNTER → 2024-04-29 10:12 | Outpatient (BNVA) | payer BC, MEDICAID, SELFPAY | PROVIDERS: PCP Family Medicine; Visit Provider Family Medicine | DX: R35.0 Frequency of micturition (principal); D72.829 Elevated white blood cell count, unspecified | CPT/HCPCS: 81000; 85025 ==

== ENCOUNTER 2024-05-02 15:15 | Oncology outpatient (recurring) (ONCR) | payer BC, MEDICAID, SELFPAY ==
--- NOTE | 2024-04-26 08:45 | USCV_ITS ---
Marah Brasher Age: 54 Gender: F : 1970 Exam Date: 04/26/2024 08:49 Ordering Phys: Keshav Hernández MD ([email or web address]) Technologist: CT Exam Location: [facility] [place] Indication: leg pain Risk Factors: Previous Vascular Surgery: RIGHT LEFT BP: 139.0 / 82.00 BP: 133.0/ 80.00 0 0 Waveform Velocity (cm/s) Velocity (cm/s) Waveform Triphasic 104.2 Iliac Prox 93.5 Triphasic Triphasic 102.1 Iliac Mid 90.9 Triphasic Triphasic 92.3 Iliac Distal 82.8 Triphasic Triphasic 92.0 PAPER BAG PRESS OPERATOR 70.0 Triphasic Triphasic 78.0 SFA Prox 63.0 Triphasic Triphasic 77.0 SFA Mid 68.0 Triphasic Triphasic 68.0 SFA Dist 56.0 Triphasic Triphasic 44.0 POP 62.0 Triphasic Triphasic 57.0 LEAD PHARMACY TECHNICIAN 61.0 Triphasic Triphasic 57.0 DPA 52.0 Triphasic 1.0 VONDA 1.0 FINDINGS Intimal thickening in the iliac, femoral and popliteal arteries bilaterally Normal arterial Doppler waveforms and velocities Resting VONDA 1.0 bilaterally CONCLUSIONS 1. Normal resting ABIs (1.0) bilaterally suggesting no significant arterial obstruction. 2. Intimal thickening in the iliac, femoral and popliteal arteries bilaterally. No unstable plaques or lesions Dr Keshav Hernández MD FAC (Electronically Signed) Final Date: 26 April 2024 15:23 S
[2024-05-02 13:38] LABS: Basophils # 0.1 10^3/uL (0.0-0.1); Basophils % 0.5 %; Eosinophils # 0.2 10^3/uL (0.0-0.8); Eosinophils % 1.8 %; Hematocrit 46.8 % (36-47); Lymphocytes # 3.7 10^3/uL (0.8-4.8); Lymphocytes % 32.5 %; Mean Corpuscular HGB Conc 33.5 g/dL (30-55); Mean Corpuscular Hemoglobin 30.7 pg (27-33); Mean Corpuscular Volume 91.6 fl (85-98); Monocytes # 0.9 10^3/uL (0.2-0.9); Monocytes % 8.1 %; Neutrophils # 6.47 10^3/uL (1.8-7.7); Neutrophils % 56.7 %; Nucleated Red Blood Cells % 0 %; Platelet Count 304 10^3/cmm (157-399); Red Blood Count 5.11 10^6/uL (3.85-5.65); Red Cell Distribution Width 12.8 % (12.1-15.1)
[2024-05-02 13:58] LABS: Alanine Aminotransferase 24 U/L (0-33); Albumin Level 4.1 g/dL (3.5-5.2); Alkaline Phosphatase 132 U/L (35-105); Aspartate Amino Transferase 22 U/L (0-32); Blood Urea Nitrogen 20 mg/dL (6-20); Calcium 9.2 mg/dL (8.5-10.5); Carbon Dioxide 21 mmol/L (22-29); Chloride 105 mmol/L (98-107); Globulin 2.9 g/dL (1.3-4.6); Glomerular Filtration Rate 129.1 mL/min (90-130); Glucose 90 mg/dL (65-115); Immunoglobulin IGA 181 mg/dL (70-400); Immunoglobulin IGG 692 mg/dL (700-1600); Immunoglobulin IGM 110 mg/dL (40-230); Osmolality Calculated 290 mOsm/kg (285-295); Sodium 139 mmol/L (136-145); Total Bilirubin 0.3 mg/dL (0.15-1.2); Uric Acid 5.4 mg/dL (2.4-5.7)
[2024-05-02 14:00] LABS: Anion Gap 17.5 (5-19); Potassium 4.5 mmol/L (3.5-5.1)
[2024-05-02 14:01] LABS: Lactate Dehydrogenase 170 U/L (135-214)
[2024-05-02 14:13] LABS: LAB Peripheral Smear Sent for Review
[2024-05-02 14:29] LABS: Hepatitis A Antibody IgM Non-Reactive (Nonreactive); Hepatitis B Core AB, Total Non-Reactive (Nonreactive); Hepatitis B Surface AB < 3.5 (11.5-1000); Hepatitis B Surface Antigen Non-Reactive (Nonreactive); Hepatitis C Virus Antibody Non-Reactive (Nonreactive)
[2024-05-02 14:32] LABS: HIV 1 & 2 Antibody Non-Reactive (Non-Reactiv); HIV 1 & 2 Antigen Non-Reactive (Non-Reactiv)
[2024-05-02 14:35] LABS: Erythrocyte Sedimentation Rate 14 mm/hr (0-15)
[2024-05-03 12:34] LABS: Leukemia Profile (BBPL) See Report
[2024-05-07 12:14] LABS: Erythropoietin 7.9 mIU/mL (2.6-18.5)
[2024-05-09 15:59] LABS: P190 BCR ALB1 NOT DETECTED; P190 BCR ALB1 Yes Test Yes; P210 BCR ALB1 NOT DETECTED; P210 BCR ALB1 Yes Test Yes; Prior Results NG; Source BLOOD
== END 2024-05-19 23:59 | disposition home or self-care (01) ==
PROVIDERS: Internal Medicine; PCP Family Medicine; Visit Provider Internal Medicine Cardiovascular Disease
DX: D72.828 Other elevated white blood cell count (principal); Z53.9 Procedure and treatment not carried out, unspecified reason
CPT/HCPCS: 36415; 80053; 80503; 81206; 81207; 81270; 81279; 81339; 81479; 82668; 82784; 83615; 84550; 85025; 85651; 86140; 86705; 86706; 86709; 86803; 87340; 87806; 88184; 88185; 93925

== ENCOUNTER → 2024-05-16 10:12 | Outpatient (BNVA) | payer BC, MEDICAID, SELFPAY | PROVIDERS: PCP Family Medicine; Visit Provider Nurse Practitioner | DX: R39.9 Unspecified symptoms and signs involving the genitourinary system (principal) | CPT/HCPCS: 81000; 87086 ==

== ENCOUNTER 2024-06-12 11:35 | Oncology outpatient (recurring) (ONCR) | payer BC, MEDICAID, SELFPAY ==
[2024-06-19 07:14] LABS: JAK2 Exon 12 Mutation NOT DETECTED (NOT DETECTED); JAK2 V617 Block Specimen ID blood; JAK2 V617 Clinical Indication hypernatriuria; Specimen Source blood 4mL
== END 2024-06-19 23:59 | disposition home or self-care (01) ==
PROVIDERS: Internal Medicine Medical Oncology; PCP Family Medicine; Visit Provider Internal Medicine Cardiovascular Disease
DX: D72.828 Other elevated white blood cell count (principal); Z53.9 Procedure and treatment not carried out, unspecified reason; I73.9 Peripheral vascular disease, unspecified
CPT/HCPCS: 36415; 81279

== ENCOUNTER → 2024-07-03 10:58 | Outpatient (BNVA) | payer BC, MEDICAID, SELFPAY | PROVIDERS: PCP Family Medicine; Visit Provider Family Medicine | DX: R82.90 Unspecified abnormal findings in urine (principal) | CPT/HCPCS: 81000 ==

== ENCOUNTER 2024-07-04 11:28 | Oncology outpatient (recurring) (ONCR) | payer BC, MEDICAID, SELFPAY ==
[2024-07-04 12:03] LABS: Basophils # 0.1 10^3/uL (0.0-0.1); Basophils % 0.5 %; Eosinophils # 0.2 10^3/uL (0.0-0.8); Eosinophils % 1.7 %; Lymphocytes # 3.1 10^3/uL (0.8-4.8); Lymphocytes % 28.6 %; Mean Corpuscular HGB Conc 32.8 g/dL (30-55); Mean Corpuscular Hemoglobin 30.4 pg (27-33); Mean Corpuscular Volume 92.9 fl (85-98); Mean Platelet Volume 9.8 fL (7.4-10.4); Monocytes # 0.9 10^3/uL (0.2-0.9); Monocytes % 8.4 %; Neutrophils # 6.59 10^3/uL (1.8-7.7); Neutrophils % 60.4 %; Nucleated Red Blood Cells % 0 %; Platelet Count 290 10^3/cmm (157-399); Red Blood Count 5.06 10^6/uL (3.85-5.65); White Blood Count 10.89 10^3/uL (3.29-11.43)
[2024-07-04 12:21] LABS: Alanine Aminotransferase 33 U/L (0-33); Albumin Level 4.1 g/dL (3.5-5.2); Alkaline Phosphatase 131 U/L (35-105); Anion Gap 18.3 (5-19); Aspartate Amino Transferase 26 U/L (0-32); Blood Urea Nitrogen 18 mg/dL (6-20); Calcium 8.8 mg/dL (8.5-10.5); Carbon Dioxide 19 mmol/L (22-29); Chloride 107 mmol/L (98-107); Glomerular Filtration Rate 129.1 mL/min (90-130); Glucose 111 mg/dL (65-115); Osmolality Calculated 293 mOsm/kg (285-295); Potassium 4.3 mmol/L (3.5-5.1); Sodium 140 mmol/L (136-145); Total Bilirubin 0.3 mg/dL (0.15-1.2); Total Protein 7.1 g/dL (6.6-8.7)
== END 2024-07-20 23:59 | disposition home or self-care (01) ==
LOC: ONCMED 11:29
PROVIDERS: Internal Medicine; PCP Family Medicine; Visit Provider Internal Medicine Cardiovascular Disease
DX: D72.828 Other elevated white blood cell count (principal)
CPT/HCPCS: 36415; 80053; 85025

== ENCOUNTER → 2025-05-29 18:15 | Outpatient (BNVA) | payer BC, SELFPAY | PROVIDERS: PCP Family Medicine; Visit Provider Family Medicine | DX: R39.9 Unspecified symptoms and signs involving the genitourinary system (principal) | CPT/HCPCS: 81000 ==

== ENCOUNTER → 2025-06-04 07:09 | Outpatient (BNVA) | payer BC, MEDICAID, SELFPAY | PROVIDERS: PCP Family Medicine | DX: N39.0 Urinary tract infection, site not specified (principal) | CPT/HCPCS: 81000 ==